=== PATIENT | female | born 1995 | race Hispanic/Latino ===

== ENCOUNTER 2021-04-30 10:06 | Emergency (ER) | payer BC, OTHER ==
--- OUTSIDE RECORDS SUMMARY | 2021-04-30 10:10 | XMS REPORT | Continuity of Care Document ---
:1995 Author Organization [facility] t Address [address] [place] [address] Care Team Providers Name Role Phone Conor Ruby MD Primary Care Physician Jeremy Jacobs Attending Clinician Unavailable ARPITA Attending Clinician Unavailable MACIEL Attending Clinician Unavailable JITENDRA JACKSON Attending Clinician Unavailable CONOR RUBY Attending Clinician Unavailable JESSIE Attending Clinician Unavailable COVID-MODERNA BOOSTER Attending Clinician Unavailable Jeremy Jacobs Admitting Clinician Unavailable Payers Payer Name Policy Type Policy Number Effective Date Expiration Date S [place] [facility] 2 [id number] 2020 00:00:00 Problems Condition Condition Condition Status Onset Resolution Last Treating Co mments Source Name Details Category Date Date Treatment Clinician Date Pharyngiti Pharyngiti Disease Active Mac luna 08-21 Seybold 00:00: 00 Molluscum Molluscum Problem Active [facility] kes - [facility] Encounter Encounter Diagnosis Active [facility] surveillan surveillan Me moria ce of ce of l contracept contracept Ou tpati shasha pills shasha pills ent Clinics Well woman Well woman Diagnosis Active [facility] exam with exam with Shay luna - routine routine Memoria gynecologi gynecologi l kaveh exam kaveh exam Outpat i ent Clinics Allergies, Adverse Reactions, Alerts Allergy Allergy Status Severity Reaction(s) Onset Inactive Treating Comm ents Source Name Type Date Date Clinician No Known DA Active U 2019-0 [facility] No Known DA Active U 2019-0 [facility]- [facility] 00 [facility] Social History Social Habit Start Date Stop Date Quantity Comments Source Tobacco use and 2020-08-21 2020-08-21 Smokeless tobacco Ke lsey Seybold exposure 00:00:00 00:00:00 non-user Sex Ass[birth year] Lynn Se ybold 00:00:00 00:00:00 Smoking Status Start Date Stop Date Source Never smoked tobacco Lynn Seyb old Medications Ordered Filled Start Stop Current Ordering Indication Dosage Frequency Signature Comments Components Source Medication Medication Date Date Medication? Clinician (SIG) Name Name methylPREDN 2020-02 Yes [id number] 1{steff} Take 1 steff Lynn ISolone 4 2-29 by mouth Seybol d MG oral 00:00: See Admin Tablet 00 Instructio Therapy ns Use as Pack directed Azithromyci 2020-02- Yes [id number] Take 2 Lynn n 250 MG 2-29 01-04 tablets by Seyb old oral Tablet 00:00: 05:59 mouth on 00 :00 day 1 then 1 tablet by mouth daily for 4 days thereafter . Methocarbam 2020-02 Yes [id number] 750mg Take 1 Lynn ol 750 MG 2-08 tablet Seybold oral Tablet 00:00: (750 mg 00 total) by mouth 4 times daily Amoxicillin 2020-02 Yes [id number] 1{tbl} Take 1 Lynn -Pot 1-29 tablet by Seybold Clavulanate 00:00: mouth 2 875-125 MG 00 times oral Tablet daily Amoxicillin 2020-02 Yes [id number] 1{tbl} Take 1 Lynn -Pot 1-29 tablet by Seybold Clavulanate 00:00: mouth 2 875-125 MG 00 times oral Tablet daily Promethazin 2020-02 Yes [id number] 25mg Q6H Take 1 Lynn e HCl 25 MG 1-16 tablet (25 Se ybold oral Tablet 00:00: mg total) 00 by mouth every 6 hours as needed for nausea Ondansetron 2020-02 Yes [id number] 4mg Q8H Take 1 Lynn (ZOFRAN) 4 1-16 tablet (4 Seyb old MG oral 00:00: mg total) TABLET 00 by mouth DISPERSIBLE every 8 hours as needed for nausea Sertraline 2020-02 Yes 25mg Take 25 mg K elsey HCl 25 MG 1-16 by mouth Seybol d oral Tablet 00:00: daily 00 Promethazin 2020-02 Yes [id number] 25mg Q6H Take 1 Lynn e HCl 25 MG 1-16 tablet (25 Se ybold oral Tablet 00:00: mg total) 00 by mouth every 6 hours as needed for nausea Ondansetron 2020-02 Yes [id number] 4mg Q8H Take 1 Lynn (ZOFRAN) 4 1-16 tablet (4 Seyb old MG oral 00:00: mg total) TABLET 00 by mouth DISPERSIBLE every 8 hours as needed for nausea Sertraline 2020-02 Yes 25mg Take 25 mg K elsey HCl 25 MG 1-16 by mouth Seybol d oral Tablet 00:00: daily 00 Nitrofurant 2020-0 Yes [id number] 100mg Take 1 Lynn oin Monohyd 8-16 capsule Seybo ld Macro 100 00:00: (100 mg MG oral 00 total) by Capsule mouth 2 times daily FLUTICASONE 0 Yes [id number] 50ug Use 1 K elsey PROPIONATE, 8-16 spray (50 Sey bold NASAL, 00:00: mcg total) (Flonase) 00 in each 50 MCG/ACT nostril nasal daily Suspension Nitrofurant 0 Yes [id number] 100mg Take 1 Lynn oin Monohyd 8-16 capsule Seybo ld Macro 100 00:00: (100 mg MG oral 00 total) by Capsule mouth 2 times daily FLUTICASONE 0 Yes [id number] 50ug Use 1 K elsey PROPIONATE, 8-16 spray (50 Sey bold NASAL, 00:00: mcg total) (Flonase) 00 in each 50 MCG/ACT nostril nasal daily Suspension Norethindro Yes 1{tbl} Take 1 Ke lsey ne, 7-04 tablet by Seybold Contracepti 00:00: mouth ve, 0.35 MG 00 daily oral Tablet Norethindro Yes 1{tbl} Take 1 Ke brandtey ne, 7-04 tablet by Chata Martinez 00:00: mouth ve, 0.35 MG 00 daily oral Tablet Loestrin 24 Loestrin 2017- Yes Chavo [address] [facility] 05-10 Jonel Bull - 00:00: [facility] Immunizations Ordered Immunization Filled Immunization Date Status Commen ts Source Name Name Influenza Virus 2020-11-24 Completed Lynn kc Vaccine, age 6 months 00:00:00 and up Influenza Virus 2020-11-24 Completed Lynn kc Vaccine, age 6 months 00:00:00 and up Covid-19 Vaccine 2020-10-15 Completed Lynn riverabold (Moderna), Mrna-lnp, 00:00:00 Johnathan Protein, Pf, 100 Mcg/0.5ml,IM Covid-19 Vaccine 2020-10-15 Completed Lynn riverabold (Moderna), Mrna-lnp, 00:00:00 Johnathan Protein, Pf, 100 Mcg/0.5ml,IM MMR- Measles, Mumps, 2020-08-24 Completed Sridevi Brizuela Rubella 00:00:00 MMR- Measles, Mumps, 2020-08-24 Completed Sridevi miguel Wagnerybold Rubella 00:00:00 Outside Tb Screening 2020-05-06 Completed Sridevi miguel Seybold 00:00:00 Outside Tb Screening 2020-05-06 Completed Sridevi miguel Seybold 00:00:00 Covid-19 Vaccine 2020-03-10 Completed Lynn riverabold (Moderna), Mrna-lnp, 00:00:00 Johnathan Protein, Pf, 100 Mcg/0.5ml,IM Covid-19 Vaccine 2020-03-10 Completed Lynn Luna eybold (Moderna), Mrna-lnp, 00:00:00 Johnathan Protein, Pf, 100 Mcg/0.5ml,IM Covid-19 Vaccine 2020-02-11 Completed Lynn Luna eybold (Moderna), Mrna-lnp, 00:00:00 Johnathan Protein, Pf, 100 Mcg/0.5ml,IM Covid-19 Vaccine 2020-02-11 Completed Lynn Luna eybold (Moderna), Mrna-lnp, 00:00:00 Johnathan Protein, Pf, 100 Mcg/0.5ml,IM Tdap- (Boostrix, 2019-02-27 Completed Lynn S eybold Adacel) 00:00:00 Tdap- (Boostrix, 2019-02-27 Completed Lynn S eybold Adacel) 00:00:00 Tdap- (Boostrix, 2019-02-27 Completed Lynn S eybold Adacel) 00:00:00 Tdap- (Boostrix, 2019-02-27 Completed Lynn S eybold Adacel) 00:00:00 Influenza Virus 2018-10-25 Completed Lynn Se ybold Vaccine, age 6 months 00:00:00 and up Influenza Virus 2018-10-25 Completed Lynn Se ybold Vaccine, age 6 months 00:00:00 and up Tdap- (Boostrix, 2017-10-09 Completed Lynn S eybold Adacel) 00:00:00 Tdap- (Boostrix, 2017-10-09 Completed Lynn S eybold Adacel) 00:00:00 Tdap- (Boostrix, 2009-02-13 Completed Lynn S eybold Adacel) 00:00:00 Tdap- (Boostrix, 2009-02-13 Completed Lynn S eybold Adacel) 00:00:00 Hepatitis A 2009-02-02 Completed Lynn Wagnerybol d 00:00:00 HPV (Human 2009-02-02 Completed Lynn Seybkeshav Papillomavirus) 00:00:00 Hepatitis A 2009-02-02 Completed Lynn Seybol d 00:00:00 HPV (Human 2009-02-02 Completed Lynn Seybkeshav Papillomavirus) 00:00:00 HPV (Human 2008-09-30 Completed Lynn Seybkeshav Papillomavirus) 00:00:00 HPV (Human 2008-09-30 Completed Lynn Seybkeshav Papillomavirus) 00:00:00 Hepatitis A 2008-07-31 Completed Lynn Seybol d 00:00:00 HPV (Human 2008-07-31 Completed Lynn Seybold Papillomavirus) 00:00:00 Meningococcal 2008-07-31 Completed Lynn Wagneryb old Vaccine- 00:00:00 Conjugate(Menactra) Varicella Vaccine 2008-07-31 Completed Lynn Brizuela 00:00:00 Tdap- (Boostrix, 2008-07-31 Completed Lynn S eybold Adacel) 00:00:00 Hepatitis A 2008-07-31 Completed Lynn Wagnerybol d 00:00:00 HPV (Human 2008-07-31 Completed Lynn Wagnerybold Papillomavirus) 00:00:00 Meningococcal 2008-07-31 Completed Lynn Wagneryb old Vaccine- 00:00:00 Conjugate(Menactra) Varicella Vaccine 2008-07-31 Completed Lynn Wagnerybold 00:00:00 Tdap- (Boostrix, 2008-07-31 Completed Lynn S eybold Adacel) 00:00:00 MMR- Measles, Mumps, 1999-09-09 Completed Sridevi ey Seybold Rubella 00:00:00 Varicella Vaccine 1999-09-09 Completed Lynn Seybold 00:00:00 IPV- Inactivated 1999-09-09 Completed Lynn S eybold Polio Vaccine 00:00:00 MMR- Measles, Mumps, 1999-09-09 Completed Sridevi ey Seybold Rubella 00:00:00 Varicella Vaccine 1999-09-09 Completed Lynn Seybold 00:00:00 IPV- Inactivated 1999-09-09 Completed Lynn S eybold Polio Vaccine 00:00:00 MMR- Measles, Mumps, 1996-02-23 Completed Sridevi ey Seybold Rubella 00:00:00 MMR- Measles, Mumps, 1996-02-23 Completed Sridevi ey Seybold Rubella 00:00:00 OPV- Oral Polio 1995 Completed Lynn Se ybold Vaccine 00:00:00 Hepatitis B, 1995 Completed Lynn Wagnerybo ld Unspecified 00:00:00 OPV- Oral Polio 1995 Completed Lynn Se ybold Vaccine 00:00:00 Hepatitis B, 1995 Completed Lynn Seybo ld Unspecified 00:00:00 OPV- Oral Polio 1995 Completed Lynn Se ybold Vaccine 00:00:00 OPV- Oral Polio 1995 Completed Lynn Se ybold Vaccine 00:00:00 OPV- Oral Polio 1995 Completed Lynn Se ybold Vaccine 00:00:00 OPV- Oral Polio 1995 Completed Lynn Se ybold Vaccine 00:00:00 Hepatitis B, 1995 Completed Lynn Kongo ld Unspecified 00:00:00 Hepatitis B, 1995 Completed Lynngenie Kongo ld Unspecified 00:00:00 Hepatitis B, 1995 Completed Lynn Wagnerybo ld Unspecified 00:00:00 Hepatitis B, 1995 Completed Lynn Wagnerybo ld Unspecified 00:00:00 Vital Signs Vital Name Observation Time Observation Value Comments Source Systolic blood pressure 2021-01-11 17:31:00 112 mm[Hg] Lynn Seybold Diastolic blood 2021-01-11 17:31:00 68 mm[Hg] Kelse y Seybold pressure Heart rate 2021-01-11 17:31:00 73 /min Lynn Jeremy riverabonano Body temperature 2021-01-11 17:31:00 37.17 Candie Sridevi ey Seybold Respiratory rate 2021-01-11 17:31:00 14 /min Sridevi rivera Seybold Body height 2021-01-11 17:31:00 160 cm Lynn riverabonano Body weight 2021-01-11 17:31:00 67.132 kg Lynngenie riverabonano BMI 2021-01-11 17:31:00 26.22 kg/m2 Lynn Jeremy howie Procedures Procedure Date / Time Performed Performing Clinician [facility] e [id number] 2019-05-21 00:00:00 [facility] Encounters Start End Encounter Admission Attending Care Care Encounter Source Date/Time Date/Time Type Type Clinicians Facility Department ID 2019-05-21 Inpatient Reynaldo [facility] RITU [id number] [facility] 02:34:[id number] [facility] 2021-04-30 2021-04-30 Outpatient LYNN PALM [id number] Lynn 09:30:00 09:30:00 THOMAS Seybol d 2021-04-21 2021-04-[address] [id number] Lynn 00:00:00 00:00:00 RUDDY Seybol d 2021-03-23 2021-03-23 Outpatient CORIE JACKSON [id number] Lynn 08:15:00 08:15:00 Seybol d 2021-03-22 2021-03-[address] LYNN [id number] Lynn 00:00:00 00:00:00 RUDDY Seybol d 2021-03-15 2021-03-15 Outpatient MACIEL LYNN ESTEVES [id number] Lynn 00:00:00 00:00:00 RUDDY Seybol d 2021-03-15 2021-03-15 Outpatient MACIEL LYNN ESTEVES [id number] Lynn 00:00:00 00:00:00 RUDDY Seybol d 2021-03-05 2021-03-05 Outpatient MACIEL LYNN ESTEVES [id number] Lynn 13:30:00 13:30:00 RUDDY Seybol d 2021-03-05 2021-03-05 Outpatient LYNN RUBY [id number] Lynn 13:30:00 13:30:00 NADER Seybol d 2021-02-11 2021-02-11 Outpatient MACIEL LYNN ESTEVES [id number] Lynn 00:00:00 00:00:00 RUDDY Seybol d 2021-02-10 2021-02-10 [facility] Corie TS [id number] Lynn 11:30:00 11:30:00 ne RUDDY Walker [id number] Se ybold [id number] 2021-02-10 2021-02-10 Outpatient MACOh LYNN ESTEVES [id number] Lynn 00:00:00 00:00:00 RUDDY Seybol d 2021-01-20 2021-01-20 Outpatient MACIEL LYNN ESTEVES [id number] Lynn 00:00:00 00:00:00 RUDDY Seybol d 2021-01-11 2021-01-11 Office MACCorie Casiano [id number] Lynn 16:00:00 16:00:00 Visit RUDDY Walker [id number] Se ybold [id number] 2020-12-29 2020-12-29 Outpatient LYNN RUBY [id number] Lynn 00:00:00 00:00:00 NADER Seybol d 2020-11-24 2020-11-24 Outpatient CORIE JACKSON LYNN ESTEVES [id number] Lynn 10:00:00 10:00:00 Seybol d 2020-11-23 2020-11-23 Outpatient CORIE JACKSON LYNN ESTEVES [id number] Lynn 09:00:00 09:00:00 Seybol d 2020-11-23 2020-11-23 Outpatient LYNN ROMAN [id number] Lynn 00:00:00 00:00:00 NILSA Seybol d 2020-10-15 2020-10-15 Outpatient COVIDKAZ ESTEVES [id number] Lynn 10:40:00 10:40:00 NA Se yamini SMITH 2020-09-28 2020-09-28 Outpatient LYNN RUBY [id number] Lynn 11:00:00 11:00:00 NADER Seybol d 2020-08-24 2020-08-24 Outpatient CORIE JACKSON LYNN ESTEVES [id number] Lynn 11:15:00 11:15:00 Seybol d 2020-08-24 2020-08-24 Outpatient LYNN ROMAN [id number] Lynn 00:00:00 00:00:00 NILSA Seybol d 2020-08-21 2020-08-21 Outpatient LYNN RUBY [id number] Lynn 16:30:00 16:30:00 NADER Seybol d 2017-05-10 2017-05-10 [facility] [id number] [address] 13:30[facility]00 13:30:00 [facility] 2017-05-10 2017-05-10 [facility] [id number] 08:48:00 08:48:00 [facility] Results Test Description Test Time Test Comments Results Result Comments Source HGB HCT 2019-05-22 06:22:00 Test Item Value Reference Range Interpretation Comme nts HEMOGLOBIN (test code = HGB) 10.4 g/dL 10.7-13.9 L HEMATOCRIT (test code = HCT) 32.1 % 32.1-42.1 N CAPILLARY BLOOD [id number] 21:02:00 Test Item Value Reference Range Interpretation Comments CAPILLARY BLOOD GAS PH (test code 7.273 7.35-7.45 L = PHC) CAPILLARY BLOOD GAS PCO2 (test 55.4 mmHg code = PCO2C) CAPILLARY BLOOD GAS PO2 (test code 12.3 mmHg = PO2C) CBG HCO3 (test code = HCO3C) 25.0 meq/L CBG BASE EXCESS (test code = BEC) -2.7 CAPILLARY BLOOD GAS TYPE (test CBLA code = TYPEC) CAPILLARY BLOOD GAS FIO2 (test 21.0 % code = FIO2C) AG HEPATITIS B [id number] 06:28:00 Test Item Value Reference Range Interpretation Comments AG HEPATITIS B SURFACE (test code NONREACTIVE NONREACTIVE = HBSAG) IS CONSENT FORM SIGNED FOR HIV TESTING? NAB HEPATITIS C [id number] 06:28:00 Test Item Value Reference Range Interpretation Comments AB HEPATITIS C (test code = NONREACTIVE NONREACTIVE HCVAB) SIGNAL TO CUTOFF (test code = 0.25 <0.80 N CUTOFF) IS CONSENT FORM SIGNED FOR HIV TESTING? NAB [id number] 06:28:00 Test Item Value Reference Range Interpretation Comments AB TREPONEMA (test code = TREPAB) NONREACTIVE NONREACTIVE IS CONSENT FORM SIGNED FOR HIV TESTING? NAB HIV 1 06:28:00 Test Item Value Reference Range Interpretation Comments AB HIV 1 2 (test NONREACTIVE NONREACTIVE Done by [facility] code = UII81BB) 4th Gen HIV Ag/Ab Combo Screen IS CONSENT FORM SIGNED FOR HIV TESTING? NAG HEPATITIS B [id number] 05:56:00 Test Item Value Reference Range Interpretation Comments AG HEPATITIS B SURFACE (test code NONREACTIVE NONREACTIVE = HBSAG) IS CONSENT FORM SIGNED FOR HIV TESTING? NAB HEPATITIS C [id number] 05:56:00 Test Item Value Reference Range Interpretation Comments AB HEPATITIS C (test code = HCVAB) NONREACTIVE SIGNAL TO CUTOFF (test code = CUTOFF) <0.80 IS CONSENT FORM SIGNED FOR HIV TESTING? NAB [id number] 05:56:00 Test Item Value Reference Range Interpretation Comments AB TREPONEMA (test code = TREPAB) NONREACTIVE NONREACTIVE IS CONSENT FORM SIGNED FOR HIV TESTING? NAB HIV 1 05:56:00 Test Item Value Reference Range Interpretation Comments AB HIV 1 2 (test code = NJA96IT) NONREACTIVE IS CONSENT FORM SIGNED FOR HIV TESTING? NCBC W/AUTO [id number] 05:12:00 Test Item Value Reference Range Interpretation Comments WHITE BLOOD CELL (test code = WBC) 11.9 K/mm3 6.6-12.1 N RED BLOOD CELL (test code = RBC) 4.06 M/mm3 3.45-5.01 N HEMOGLOBIN (test code = HGB) 11.5 g/dL 10.7-13.9 N HEMATOCRIT (test code = HCT) 34.9 % 32.1-42.1 N MEAN CELL VOLUME (test code = MCV) 86 fL 84.1-94.8 N MEAN CELL HGB (test code = MCH) 28.3 pg 27-35 N MEAN CELL HGB CONCETRATION (test 33.0 gm/dL 32.2-34.1 N code = MCHC) RED CELL DISTRIBUTION WIDTH (test 12.2 % 12.4-16.5 L code = RDW) PLATELET COUNT (test code = PLT) 239 K/mm3 133-385 N MEAN PLATELET VOLUME (test code = 12.3 fl 9.1-12.7 N MPV) NEUTROPHIL % (test code = NT%) 78.4 % 56.5-79.4 N LYMPHOCYTE % (test code = LY%) 11.7 % 14.3-34.3 L MONOCYTE % (test code = MO%) 8.0 % 5.1-10.4 N EOSINOPHIL % (test code = EO%) 0.8 % 0.1-3.0 N BASOPHIL % (test code = BA%) 0.3 % 0.1-1.0 N NEUTROPHIL # (test code = NT#) 9.3 K/mm3 LYMPHOCYTE # (test code = LY#) 1.4 K/mm3 MONOCYTE # (test code = MO#) 1.0 K/mm3 EOSINOPHIL # (test code = EO#) 0.10 K/mm3 BASOPHIL # (test code = BA#) 0.0 K/mm3 RBC MORPHOLOGY REQUIRED (test code NORMAL NORMAL = RBCM) PLATELET MORPHOLOGY REQUIRED (test NORMAL NORMAL code = PLTMR)
--- NOTE | 2021-04-30 12:21 | RAD REPORT ---
EXAM DESCRIPTION: RAD - Tib Fib Left - 04/30/2021 11:19 am CLINICAL HISTORY: Leg pain, twisting injury COMPARISON: None. FINDINGS: No fracture is identified. There is no dislocation or periosteal reaction noted. No acute or suspicious bony finding. Lateral soft tissue swelling is seen at the distal tib fib and ankle region. No foreign body in the s oft tissues. IMPRESSION: Lateral lower leg soft tissue swelling without acute bone finding.
--- NOTE | 2021-04-30 12:23 | RAD REPORT ---
EXAM DESCRIPTION: RAD - Foot Left 3 View - 04/30/2021 11:19 am CLINICAL HISTORY: PAIN, fall with twisting injury COMPARISON: Tib Fib Left dated 04/30/2021 FINDINGS: No fracture, dislocation or periosteal reaction. No acute or destructive bony process. No air or foreign body in the soft tissues. At the ankle joint there is swelling and edema of the ant erior and lateral soft tissues. IMPRESSION: Soft tissue swelling around the distal leg and lateral ankle. No fracture or acute bone finding.
--- NOTE | 2021-04-30 12:47 | EDPHYS ---
Physician Documentation [facility] Name: Temitope Artis Age: 26 yrs Sex: Female : 1995 Arrival Date: 04/30/2021 Time: 10:10 Bed 11 Private MD: ED Physician Adi Garcia HPI: 04/30 11:20 This 26 yrs old Female presents to ER via Wheelchair with complaints of Ankle jr8 Injury. 11:20 The patient presents with decreased range of motion, pain, swelling, tenderness. The jr8 complaints affect the left ankle. Onset: The symptoms/episode began/occurred acutely, yesterday. Context: The problem was sustained outdoors, resulted from a mis-step by the patient, The mechanism of injury involved inversion of the affected ankle. The patient can partially bear weight on the affected extremity. Associated signs and symptoms: The patient has no apparent associated signs or symptoms. Severity of symptoms: At their worst the symptoms were moderate, in the emergency department the symptoms are unchanged. The patient has not experienced similar symptoms in the past. The patient has not recently seen a physician. And stated that she was at the [facility] causing an inversion of the left ankle. Patient stated that since then she has had moderate swelling with increasing pain.. Historical: - Allergies: 10:25 No Known Allergies; ll1 - PMHx: 10:25 None; ll1 - PSHx: 10:25 back SX; section; Cholecystectomy; ll1 - Immunization history:: Client reports receiving the 2nd dose of the Covid vaccine. - Social history:: Smoking status: Patient denies any tobacco usage or history of. ROS: 11:20 Eyes: Negative for injury, pain, redness, and discharge, ENT: Negative for injury, jr8 pain, and discharge, Neck: Negative for injury, pain, and swelling, Cardiovascular: Negative for chest pain, palpitations, and edema, Respiratory: Negative for shortness of breath, cough, wheezing, and pleuritic chest pain, Abdomen/GI: Negative for abdominal pain, nausea, vomiting, diarrhea, and constipation, Back: Negative for injury and pain, Skin: Negative for injury, rash, and discoloration, Neuro: Negative for headache, weakness, numbness, tingling, and seizure. 11:20 MS/extremity: Positive for decreased range of motion, pain, swelling, tenderness, of the left ankle. Exam: 11:20 Constitutional: This is a well developed, well nourished patient who is awake, alert, jr8 and in no acute distress. Cardiovascular: Regular rate and rhythm with a normal S1 and S2. No gallops, murmurs, or rubs. Normal PMI, no JVD. No pulse deficits. Respiratory: Lungs have equal breath sounds bilaterally, clear to auscultation and percussion. No rales, rhonchi or wheezes noted. No increased work of breathing, no retractions or nasal flaring. Skin: Warm, dry with normal turgor. Normal color with no rashes, no lesions, and no evidence of cellulitis. Neuro: Awake and alert, GCS 15, oriented to person, place, time, and situation. Motor strength 5/5 in all extremities. Sensory grossly intact. 11:20 Musculoskeletal/extremity: Extremities: grossly normal except: noted in the left ankle: decreased ROM, pain, swelling, tenderness, Or swelling to the left lateral ankle extending to the dorsum of the ankle. Patient has moderate amount of tenderness to the lateral malleolus and anterior ankle., ROM: limited active range of motion, limited passive range of motion, limited active range of motion due to pain, limited passive range of motion due to pain, Circulation is intact in all extremities. Sensation intact. Vital Signs: 10:26 BP 116 / 83; Pulse 84; Resp 16; Temp 98.1; Pulse Ox 99% ; Weight 67.13 kg; Height 5 ft. ll1 2 in. (157.48 cm); Pain 5/10; 10:26 Body Mass Index 27.07 (67.13 kg, 157.48 cm) ll1 Procedures: 12:46 Splinting: Splint applied to left ankle using christoph wrap, applied by nurse. Examined by jr8 ia, post splint application: neurovascular intact, 2+ distal pulses palpable, brisk capillary refill noted, Patient tolerated well. Crutch training provided to patient and/or family. Return demonstration given. MDM: 10:28 Patient medically screened. jr8 12:46 Data reviewed: vital signs, nurses notes, radiologic studies, plain films. Data jr8 interpreted: Pulse oximetry: on room air is 99 %. Interpretation: normal. Counseling: I had a detailed discussion with the patient and/or guardian regarding: the historical points, exam findings, and any diagnostic results supporting the discharge/admit diagnosis, radiology results, the need for outpatient follow up, a orthopedic surgeon, to return to the emergency department if symptoms worsen or persist or if there are any questions or concerns that arise at home. 04/30 10:25 Order name: Foot Left 3 View XRAY; Complete Time: 12:39 ma2 04/30 10:25 Order name: Tib Fib Left XRAY; Complete Time: 12:39 ma2 04/30 12:39 Order name: Christoph wrap-joint; Complete Time: 12:55 jr8 04/30 12:39 Order name: Crutches; Complete Time: 12:55 jr8 Administered Medications: No medications were administered Disposition Summary: 04/30/21 12:47 Discharge Ordered Location: Home jr8 Problem: new jr8 Symptoms: have improved jr8 Condition: Stable jr8 Diagnosis - Sprain of ankle jr8 Followup: jr8 - With: Anthony Quintero MD - When: 1 week - Reason: Recheck today's complaints, Continuance of care, Re-evaluation by your physician Discharge Instructions: - Discharge Summary Sheet jr8 - Ankle Sprain jr8 Forms: - Medication Reconciliation Form jr8 - Thank You Letter jr8 - Antibiotic Education jr8 - Prescription Opioid Use jr8 Prescriptions: - Ibuprofen 800 mg Oral Tablet - take 1 tablet by ORAL route every 12 hours As needed take with food; 20 tablet; jr8 Refills: 0, Product Selection Permitted Signatures: Dispatcher [employer] Bret Reyes PA PA jr8 Tsering Ray RN RN ll1
--- NOTE | 2021-04-30 12:47 | ER ---
Nurse's Notes [facility] Name: Temitope Artis Age: 26 yrs Sex: Female : 1995 Arrival Date: 04/30/2021 Time: 10:10 Bed 11 Private MD: Diagnosis: Sprain of ankle Presentation: 04/30 10:26 Chief complaint: Patient states: Rolled L ankle last night at 2300 leaving the [place]. ll1 Pain, swelling since. Coronavirus screen: Vaccine status: Patient reports receiving the 2nd dose of the covid vaccine. Client denies travel out of the [place] in the last 14 days. At this time, the client does not indicate any symptoms associated with coronavirus-19. Ebola Screen: Patient denies travel to an Ebola-affected area in the 21 days before illness onset. Initial Sepsis Screen: Does the patient meet any 2 criteria? No. Patient's initial sepsis screen is negative. Does the patient have a suspected source of infection? Yes: Bone or joint infection. Risk Assessment: Do you want to hurt yourself or someone else? Patient reports no desire to harm self or others. Onset of symptoms was April 29, 2021. 10:26 Method Of Arrival: Wheelchair ll1 10:26 Acuity: OSMEL 4 ll1 Triage Assessment: 10:27 General: Appears uncomfortable, Behavior is calm, cooperative, appropriate for age. ll1 Pain: Complains of pain in L ankle Quality of pain is described as aching. Musculoskeletal: Reports pain in L ankle. Historical: - Allergies: 10:25 No Known Allergies; ll1 - PMHx: 10:25 None; ll1 - PSHx: 10:25 back SX; section; Cholecystectomy; ll1 - Immunization history:: Client reports receiving the 2nd dose of the Covid vaccine. - Social history:: Smoking status: Patient denies any tobacco usage or history of. Screenin:10 Abuse screen: Denies threats or abuse. Nutritional screening: No deficits noted. aa5 Tuberculosis screening: No symptoms or risk factors identified. Fall Risk None identified. Assessment: 13:00 General: Appears comfortable, Behavior is calm, cooperative. Pain: Complains of pain in aa5 left ankle. Neuro: Level of Consciousness is awake, alert, obeys commands, Oriented to person, place, time, situation. Respiratory: Airway is patent Respiratory effort is even, unlabored, Respiratory pattern is regular, symmetrical. Derm: Skin is pink, warm \T\ dry. Musculoskeletal: Swelling present in left ankle. 13:10 Reassessment: Patient is alert, oriented x 3, equal unlabored respirations, skin aa5 warm/dry/pink. Vital Signs: 10:26 BP 116 / 83; Pulse 84; Resp 16; Temp 98.1; Pulse Ox 99% ; Weight 67.13 kg; Height 5 ft. ll1 2 in. (157.48 cm); Pain 5/10; 10:26 Body Mass Index 27.07 (67.13 kg, 157.48 cm) ll1 ED Course: 10:10 Patient arrived in ED. as 10:24 Adi Garcia MD is Attending Physician. ma2 10:25 Arm band placed on. ll1 10:27 Triage completed. ll1 10:28 Bret Carr PA is PHCP. jr8 11:19 Foot Left 3 View XRAY In Process Unspecified. EDMS 11:19 Tib Fib Left XRAY In Process Unspecified. EDMS 12:46 Anthony Quintero MD is Referral Physician. jr8 12:54 Crutch training done. Christoph wrap to left ankle. dh3 13:00 Patient has correct armband on for positive identification. aa5 13:10 No provider procedures requiring assistance completed. Patient did not have IV access aa5 during this emergency room visit. 13:13 Rosio Araiza, RN is Primary Nurse. aa5 Administered Medications: No medications were administered Outcome: 12:47 Discharge ordered by . jr8 13:10 Discharged to home via wheelchair, with crutches, with family. aa5 13:10 Condition: stable 13:10 Discharge instructions given to patient, Instructed on discharge instructions, follow up and referral plans. medication usage, crutch walking, Demonstrated understanding of instructions, follow-up care, medications, crutch walking, Prescriptions given X 1. 13:13 Patient left the ED. aa5 Signatures: Dispatcher [employer] EDMS Paty Power as Rosio Araiza, JAYA RN aa5 Bret Carr PA PA jr8 Gisela Mahajan 3 Adi Garcia MD MD ma2 Tsering Ray RN RN ll1 Corrections: (The following items were deleted from the chart) 13:15 13:10 Discharged to home via wheelchair, with crutches, with family, aa5 aa5 13:15 13:10 Discharge instructions given to patient, Instructed on discharge instructions, aa5 follow up and referral plans. medication usage, Demonstrated understanding of instructions, follow-up care, medications, Prescriptions given X 1, aa5
[2021-04-30 13:17] VITALS: BP 116/83; TEMP 98.1; O2SAT 99
== END 2021-04-30 13:13 | disposition home or self-care (01) ==
LOC: ER 10:06
DX: S93.402A Sprain of unspecified ligament of left ankle, initial encounter (principal)
CPT/HCPCS: 99283

== ENCOUNTER 2024-06-11 21:51 | Emergency (ER) | payer BC, OTHER ==
--- OUTSIDE RECORDS SUMMARY | 2024-06-11 21:55 | XMS REPORT | Continuity of Care Document ---
Author Name Unknown Address [address] [facility] [address] [place] [address] [facility] Address [address] [facility] [place] [address] Care Team Providers Care Refractory Technician Name Role Phone [employer]ung [employer], Nader Burden Primary Care Physician Adonis Jacobs Attending Clinician Unavailab le [facility]_G Attending Clinician Unavail able GC_SWHATBHENRY_Reynaldo Attending Clinician Unavaila FRANCK Frost Attending Clinician Unavailab INDRA Camp Attending Clinician Unavailable AMANDA DINH Attending Clinician Unavailable RUDDY ST Attending Clinician Unavailable RENETTA [place] Attending Clinician UnavailNILSA Yeboah Attending Clinician Unavailable [id number] Attending Clinician Unavailable TESTING, LJ FRANCA VILLANUEVA Attending Clinician U Sree Awad DO Attending Clinician [phone] NADER RUBY Attending Clinician UnaSTEFFI Parker Attending Clinic winter Unavailable Adonis Jacobs Admitting Clinician Unavailab le [facility]_G Admitting Clinician Unavail able GC_SWHATBIC_Reynaldo Admitting Clinician Unavaila ble Payers Payer Name Policy Type Policy Number Effective Date Expirati on Date Source [place] [id number] 2020 00:00:00 BCBS 2 [id number] 2020 00:00:00 Problems Condition Name Condition Details Condition Category Status Onset Date Resolution Date Last Treatment Date Treating Clinician Comments Source Vaginal delivery Vaginal Delivery Problem Active 2- 00:00: 00 [facility] Anxiety Anxiety Problem Active 4-20 00:00: 00 [facility] Acute left ankle pain Acute left ankle pain Disease Active 3-18 00:00: 00 Lynn Brizuela - Externa l Pharyngiti s Pharyngiti s Disease Active 08-21 00:00: 00 Lynn Brizuela - Externa l Well woman exam with routine gynecologi kaveh exam Well woman exam with routine gynecologi kaveh exam Diagnosis Active [facility] Molluscum contagiosu m Molluscum contagiosu m Problem Active [facility] Encounter for surveillan ce of contracept shasha pills Encounter for surveillan ce of contracept shasha pills Diagnosis Active [facility] Allergies, Adverse Reactions, Alerts Allergy Name Allergy Type Status Severity Reaction(s) Onset Date Inactive Date Treating Clinician Comments Source No Known Allergie s DA Active U 05-20 00:00: 00 [facility] No Known Allergie s DA Active U 05-20 00:00: 00 [facility] Social History Social Habit Start Date Stop Date Quantity Comments Source ASSERTION Lynn figueroa - External Sexual orientation K edu Brizuela - External History of Social function 2022-02-08 00:00:00 2022-02-08 00:00:00 Lynn Brizuela - External Tobacco use and exposure 2020-08-21 00:00:00 2020-08-21 00:00:00 Smokeless tobacco non-user Lynn Brizuela - External Sex Assigned At 1995 00:00:00 1995 00:00:00 Lynn Brizuela - External Smoking Status Start Date Stop Date Source Never smoked tobacco Lynn Brizuela - External Medications Ordered Medication Name Filled Medication Name Start Date Stop Date Current Medication? Ordering Clinician Indication Dosage Frequency Signature (SIG) Comments Components Source FLUTICASONE PROPIONATE, NASAL, 50 MCG/ACT nasal Suspension 7-07 00:00: 00 Yes [id number] 50ug Use 1 spray (50 mcg total) in each nostril daily Lynn hua methylPREDN ISolone 4 MG oral Tablet Therapy Pack 2021-02 00:00: 00 Yes [id number] 1{steff} Take 1 steff by mouth See Admin Instructio ns Use as directed Lynn hua methylPREDN ISolone 4 MG oral Tablet Therapy Pack 2021-02 00:00: 00 Yes [id number] 1{steff} Take 1 steff by mouth See Admin Instructio ns Use as directed Lynn hua Azithromyci n 250 MG oral Tablet 2021-02 00:00: 00 02-14 05:59 :00 No [id number] Take 2 tablets by mouth on day 1 then 1 tablet by mouth daily for 4 days thereafter . Lynn hua Nitrofurant oin Monohyd Macro (Macrobid) 100 MG oral Capsule 2021-02 00:00: 00 Yes [id number] 100mg Take 1 capsule (100 mg total) by mouth 2 times daily Lynn hua Phenazopyri dine HCl 200 MG oral Tablet 2021-02 00:00: 00 Yes [id number] 200mg Q.[id number] 3D Take 1 tablet (200 mg total) by mouth 3 times daily as needed for pain Lynn hua FLUTICASONE PROPIONATE, NASAL, 50 MCG/ACT nasal Suspension 5-03 00:00: 00 Yes [id number] 50ug Use 1 spray (50 mcg total) in each nostril daily Lynn hua Cefixime (Suprax) 400 MG oral Capsule 3-09 00:00: 00 04-30 00:00 :00 No [id number] 400mg Take 400 mg by mouth daily Lynn Brizuela Scopolamine (TRANSDERM- SCOP) 1 MG/3DAYS transdermal PATCH 72 HR 2-07 00:00: 00 04-30 00:00 :00 No [id number] 1{patch } Place 1 patch onto the skin every 3 days Lynn Brizuela Ondansetron (Zofran ODT) 4 MG oral TABLET DISPERSIBLE 2- 00:00: 00 04-30 00:00 :00 No [id number] 4mg Q.[id number] 3D Take 1 tablet (4 mg total) by mouth every 8 hours as needed for nausea Lynn Brizuela methylPREDN ISolone 4 MG oral Tablet Therapy Pack 2020-02 00:00: 00 04-30 00:00 :00 No [id number] 1{steff} Take 1 steff by mouth See Admin Instructio ns Use as directed Lynn Brizuela Azithromyci n 250 MG oral Tablet 2020-02 00:00: 00 02-16 05:59 :00 No [id number] Take 2 tablets by mouth on day 1 then 1 tablet by mouth daily for 4 days thereafter . Lynn Brizuela Methocarbam ol 750 MG oral Tablet 2020-02 00:00: 00 04-30 00:00 :00 No [id number] 750mg Take 1 tablet (750 mg total) by mouth 4 times daily Lynn Brizueal Amoxicillin -Pot Clavulanate 875-125 MG oral Tablet 2020-02 00:00: 00 Yes [id number] 1{tbl} Take 1 tablet by mouth 2 times daily Lynn Brizuela Ondansetron (ZOFRAN) 4 MG oral TABLET DISPERSIBLE 2020-02 00:00: 00 Yes [id number] 4mg Q8H Take 1 tablet (4 mg total) by mouth every 8 hours as needed for nausea Lynn Brizuela Promethazin e HCl 25 MG oral Tablet 2020-02 00:00: 00 04-30 00:00 :00 No [id number] 25mg Q.25D Take 1 tablet (25 mg total) by mouth every 6 hours as needed for nausea Lynn Brizuela Nitrofurant oin Monohyd Macro 100 MG oral Capsule 8-16 00:00: 00 Yes [id number] 100mg Take 1 capsule (100 mg total) by mouth 2 times daily Lynn Brizuela Norethindro neGennaroti ve, 0.35 MG oral Tablet 7-04 00:00: 00 04-30 00:00 :00 No 1{tbl} Take 1 tablet by mouth daily Lynn Brizuela Loestrin Loestrin 3- 00:00: 00 Yes Chavo Repiloi 1 tablet [facility] fluticasone propionate 50 mcg/actuati on nasal spray,suspe nsion fluticasone propionate 50 mcg/actuati on nasal spray,suspe nsion No fluticason e propionate 50 mcg/actuat ion nasal spray,susp ension [facility] metoclopram amarjit 10 mg tablet TAKE 1 TABLET BY MOUTH THREE TIMES DAILY BEFORE MEALS metoclopram amarjit 10 mg tablet TAKE 1 TABLET BY MOUTH THREE TIMES DAILY BEFORE MEALS No metoclopra mide 10 mg tablet TAKE 1 TABLET BY MOUTH THREE TIMES DAILY BEFORE MEALS [facility] neomycin-po lymyxin-hyd rocort 3.5 mg/mL-10,00 0 unit/mL-1 % ear solution INSTILL 2 DROPS TO LEFT EAR THREE TIMES DAILY neomycin-po lymyxin-hyd rocort 3.5 mg/mL-10,00 0 unit/mL-1 % ear solution INSTILL 2 DROPS TO LEFT EAR THREE TIMES DAILY No neomycin-p olymyxin-h ydrocort 3.5 mg/mL-10,0 00 unit/mL-1 % ear solution INSTILL 2 DROPS TO LEFT EAR THREE TIMES DAILY [facility] ondansetron HCl 4 mg tablet ondansetron HCl 4 mg tablet No ondansetro n HCl 4 mg tablet [facility] rho(D) immune globulin 1,500 unit (300 mcg) intramuscul ar syringe inject 2 ml by intramuscul ar route rho(D) immune globulin 1,500 unit (300 mcg) intramuscul ar syringe inject 2 ml by intramuscul ar route No rho(D) immune globulin 1,500 unit (300 mcg) intramuscu lar syringe inject 2 ml by intramuscu lar route [facility] Rhophylac 1,500 unit (300 mcg)/2 mL injection syringe INJECT 2 ML IN THE MUSCLE DIRECTED Rhophylac 1,500 unit (300 mcg)/2 mL injection syringe INJECT 2 ML IN THE MUSCLE DIRECTED No Rhophylac 1,500 unit (300 mcg)/2 mL injection syringe INJECT 2 ML IN THE MUSCLE DIRECTED [facility] sertraline 100 mg tablet TAKE 1 TABLET BY MOUTH DAILY sertraline 100 mg tablet TAKE 1 TABLET BY MOUTH DAILY No sertraline 100 mg tablet TAKE 1 TABLET BY MOUTH DAILY [facility] sertraline 25 mg tablet TAKE 1 TABLET BY MOUTH DAILY sertraline 25 mg tablet TAKE 1 TABLET BY MOUTH DAILY No sertraline 25 mg tablet TAKE 1 TABLET BY MOUTH DAILY [facility] sertraline 50 mg tablet TAKE 1 AND 1/2 TABLETS BY MOUTH EVERY DAY DIRECTED sertraline 50 mg tablet TAKE 1 AND 1/2 TABLETS BY MOUTH EVERY DAY DIRECTED No sertraline 50 mg tablet TAKE 1 AND 1/2 TABLETS BY MOUTH EVERY DAY DIRECTED [facility] ibuprofen 600 mg tablet TAKE 1 TABLET BY MOUTH EVERY 6 HOURS NEEDED ibuprofen 600 mg tablet TAKE 1 TABLET BY MOUTH EVERY 6 HOURS NEEDED No ibuprofen 600 mg tablet TAKE 1 TABLET BY MOUTH EVERY [address] [facility] oxycodone-a cetaminophe n 5 mg-325 mg tablet TAKE 1 TABLET BY MOUTH EVERY 6 HOURS NEEDED oxycodone-a cetaminophe n 5 mg-325 mg tablet TAKE 1 TABLET BY MOUTH EVERY 6 HOURS NEEDED No oxycodone- acetaminop hen 5 mg-325 mg tablet TAKE 1 TABLET BY MOUTH EVERY [address] [facility] Immunizations Ordered Immunization Name Filled Immunization Name Date Status Comments Source Influenza Virus Vaccine, age 6 months and up 2021-11-04 00:00:00 Completed Lynn Brizuela - External Influenza Virus Vaccine, age 6 months and up 2020-11-24 00:00:00 Completed Lynn Brizuela Influenza Virus Vaccine, age 6 months and up 2020-11-24 00:00:00 Completed Lynn Brizuela Influenza Virus Vaccine, age 6 months and up 2020-11-24 00:00:00 Completed Lynn Brizuela - External Influenza Virus Vaccine, age 6 months and up 2020-11-24 00:00:00 Completed Lynn Brizuela Covid-19 Vaccine Moderna (Spikevax), Mrna-lnp, Johnathan Protein, Pf 2020-10-15 00:00:00 Completed Lynn Brizuela Covid-19 Vaccine Moderna (Spikevax), Mrna-lnp, Johnathan Protein, Pf 2020-10-15 00:00:00 Completed Lynn Kongold - External Covid-19 Vaccine (Moderna), Mrna-lnp, Johnathan Protein, Pf, 100 Mcg/0.5ml,IM 2020-10-15 00:00:00 Completed Lynn Kongold Covid-19 Vaccine (Moderna), Mrna-lnp, Johnathan Protein, Pf, 100 Mcg/0.5ml,IM 2020-10-15 00:00:00 Completed Lynn Wagnernileold MMR- Measles, Mumps, Rubella 2020-08-24 00:00:00 Completed Lynn Seybold MMR- Measles, Mumps, Rubella 2020-08-24 00:00:00 Completed Lynn Wagnerybold - External MMR- Measles, Mumps, Rubella 2020-08-24 00:00:00 Completed Lynn Kongold MMR- Measles, Mumps, Rubella 2020-08-24 00:00:00 Completed Lynn Brizuela Covid-19 Vaccine (UNSPECIFIED) 2020-05-25 00:00:00 Completed Lynn Wagnerybold - External Outside Tb Screening 2020-05-06 00:00:00 Completed Lynn ybold Outside Tb Screening 2020-05-06 00:00:00 Completed Lynn ybold - External Outside Tb Screening 2020-05-06 00:00:00 Completed Lynn Seybold Outside Tb Screening 2020-05-06 00:00:00 Completed Lynn Kongold Covid-19 Vaccine Moderna (Spikevax), Mrna-lnp, Johnathan Protein, Pf 2020-03-10 00:00:00 Completed Lynn Wagnerybold Covid-19 Vaccine Moderna (Spikevax), Mrna-lnp, Johnathan Protein, Pf 2020-03-10 00:00:00 Completed Lynn Seybold - External Covid-19 Vaccine (Moderna), Mrna-lnp, Johnathan Protein, Pf, 100 Mcg/0.5ml,IM 2020-03-10 00:00:00 Completed Lynn Seybold Covid-19 Vaccine (Moderna), Mrna-lnp, Johnathan Protein, Pf, 100 Mcg/0.5ml,IM 2020-03-10 00:00:00 Completed Lnyn Kongold Covid-19 Vaccine Moderna (Spikevax), Mrna-lnp, Johnathan Protein, Pf 2020-02-11 00:00:00 Completed Lynn Wagnerybold Covid-19 Vaccine Moderna (Spikevax), Mrna-lnp, Johnathan Protein, Pf 2020-02-11 00:00:00 Completed Lynn Senileold - External Covid-19 Vaccine (Moderna), Mrna-lnp, Johnathan Protein, Pf, 100 Mcg/0.5ml,IM 2020-02-11 00:00:00 Completed Lynn Kongold Covid-19 Vaccine (Moderna), Mrna-lnp, Johnathan Protein, Pf, 100 Mcg/0.5ml,IM 2020-02-11 00:00:00 Completed Lynn Kongold Tdap- (Boostrix, Adacel) 2019-02-27 00:00:00 Completed Lynn Kongold Tdap- (Boostrix, Adacel) 2019-02-27 00:00:00 Completed Lynn Seybold Tdap- (Boostrix, Adacel) 2019-02-27 00:00:00 Completed Lynn Seybold - External Tdap- (Boostrix, Adacel) 2019-02-27 00:00:00 Completed Lynn nileold Influenza Virus Vaccine, age 6 months and up 2018-10-25 00:00:00 Completed Lynn nileold Influenza Virus Vaccine, age 6 months and up 2018-10-25 00:00:00 Completed Lynn Wagnerybold - External Influenza Virus Vaccine, age 6 months and up 2018-10-25 00:00:00 Completed Lynn ybold Influenza Virus Vaccine, age 6 months and up 2018-10-25 00:00:00 Completed Lynn nileold Influenza Virus Vaccine, Unspecified Formulation 2018-10-24 00:00:00 Completed Lynn Seybold - External Tdap- (Boostrix, Adacel) 2017-10-09 00:00:00 Completed Lynn Seybold Tdap- (Boostrix, Adacel) 2017-10-09 00:00:00 Completed Lynn Seybold - External Tdap- (Boostrix, Adacel) 2017-10-09 00:00:00 Completed Lynn Seybold Tdap- (Boostrix, Adacel) 2017-10-09 00:00:00 Completed Lynn Seybold Tdap- (Boostrix, Adacel) 2009-02-13 00:00:00 Completed Lynn Wagnerybold Tdap- (Boostrix, Adacel) 2009-02-13 00:00:00 Completed Lynn Wagnerybold Tdap- (Boostrix, Adacel) 2009-02-13 00:00:00 Completed Lynn Seybold - External Tdap- (Boostrix, Adacel) 2009-02-13 00:00:00 Completed Lynn Brizuela Hepatitis A 2009-02-02 00:00:00 Completed Lynn Brizuela HPV (Human Papillomavirus) 2009-02-02 00:00:00 Completed Lynn Brizuela Hepatitis A 2009-02-02 00:00:00 Completed Lynn Brizuela - External HPV (Human Papillomavirus) 2009-02-02 00:00:00 Completed Lynn Brizuela - External Hepatitis A 2009-02-02 00:00:00 Completed Lynn Brizuela HPV (Human Papillomavirus) 2009-02-02 00:00:00 Completed Lynn Brizuela Hepatitis A 2009-02-02 00:00:00 Completed Lynn Brizuela HPV (Human Papillomavirus) 2009-02-02 00:00:00 Completed Lynn Brizuela HPV (Human Papillomavirus) 2008-09-30 00:00:00 Completed Lynn Brizuela HPV (Human Papillomavirus) 2008-09-30 00:00:00 Completed Lynn Brizuela - External HPV (Human Papillomavirus) 2008-09-30 00:00:00 Completed Lynn Brizuela HPV (Human Papillomavirus) 2008-09-30 00:00:00 Completed Lynn Brizuela Tdap- (Boostrix, Adacel) 2008-07-31 00:00:00 Completed Lynn Kongold Hepatitis A 2008-07-31 00:00:00 Completed Lynn Brizuela HPV (Human Papillomavirus) 2008-07-31 00:00:00 Completed Lynn Brizuela Meningococcal Vaccine- Conjugate(Menactra) 2008-07-31 00:00:00 Completed Lynn Seybold Varicella Vaccine 2008-07-31 00:00:00 Completed Lynn Brizuela Tdap- (Boostrix, Adacel) 2008-07-31 00:00:00 Completed Lynn Brizuela - External Hepatitis A 2008-07-31 00:00:00 Completed Lynn Brizuela - External HPV (Human Papillomavirus) 2008-07-31 00:00:00 Completed Lynn Brizuela - External Meningococcal Vaccine- Conjugate(Menactra) 2008-07-31 00:00:00 Completed Lynn Kongold - External Varicella Vaccine 2008-07-31 00:00:00 Completed Lynn Brizuela - External Tdap- (Boostrix, Adacel) 2008-07-31 00:00:00 Completed Lynn Brizuela Hepatitis A 2008-07-31 00:00:00 Completed Lynn Brizuela HPV (Human Papillomavirus) 2008-07-31 00:00:00 Completed Lynn Brizuela Meningococcal Vaccine- Conjugate(Menactra) 2008-07-31 00:00:00 Completed Lynn Wagnerybkeshav Varicella Vaccine 2008-07-31 00:00:00 Completed Lynn Brizuela Tdap- (Boostrix, Adacel) 2008-07-31 00:00:00 Completed Lynn Brizuela Hepatitis A 2008-07-31 00:00:00 Completed Lynn Brizuela HPV (Human Papillomavirus) 2008-07-31 00:00:00 Completed Lynn Brizuela Meningococcal Vaccine- Conjugate(Menactra) 2008-07-31 00:00:00 Completed Lynn Wagnerybkeshav Varicella Vaccine 2008-07-31 00:00:00 Completed Lynn Brizuela MMR- Measles, Mumps, Rubella 1999-09-09 00:00:00 Completed Lynn Wagnerybold Varicella Vaccine 1999-09-09 00:00:00 Completed Lynn Brizuela IPV- Inactivated Polio Vaccine 1999-09-09 00:00:00 Completed Lynn Brizuela MMR- Measles, Mumps, Rubella 1999-09-09 00:00:00 Completed Lynn Kongold - External Varicella Vaccine 1999-09-09 00:00:00 Completed Lynn Brizuela - External IPV- Inactivated Polio Vaccine 1999-09-09 00:00:00 Completed Lynn Brizuela - External MMR- Measles, Mumps, Rubella 1999-09-09 00:00:00 Completed Lynn Seybold Varicella Vaccine 1999-09-09 00:00:00 Completed Lynn Wagnerybold IPV- Inactivated Polio Vaccine 1999-09-09 00:00:00 Completed Lynn Wagnerybold MMR- Measles, Mumps, Rubella 1999-09-09 00:00:00 Completed Lynn Seybold Varicella Vaccine 1999-09-09 00:00:00 Completed Lynn Wagnerybold IPV- Inactivated Polio Vaccine 1999-09-09 00:00:00 Completed Lynn Seybold Varicella Vaccine 1999-08-01 00:00:00 Completed Lynn Seybold - External MMR- Measles, Mumps, Rubella 1996-02-23 00:00:00 Completed Lynn Wagnerybold MMR- Measles, Mumps, Rubella 1996-02-23 00:00:00 Completed Lynn Seybold - External MMR- Measles, Mumps, Rubella 1996-02-23 00:00:00 Completed Lynn Wagnerybold MMR- Measles, Mumps, Rubella 1996-02-23 00:00:00 Completed Lynn Wagnerybold OPV- Oral Polio Vaccine 1995 00:00:00 Completed Lynn Wagnerybkeshav Hepatitis B, Unspecified 1995 00:00:00 Completed Lynn Seybold OPV- Oral Polio Vaccine 1995 00:00:00 Completed Lynn Wagnerybkeshav Hepatitis B, Unspecified 1995 00:00:00 Completed Lynn Seybold - External OPV- Oral Polio Vaccine 1995 00:00:00 Completed Lynn Wagnerybold - External Hepatitis B, Unspecified 1995 00:00:00 Completed Lynn Seybold OPV- Oral Polio Vaccine 1995 00:00:00 Completed Lynn Wagnerybold Hepatitis B, Unspecified 1995 00:00:00 Completed Lynn Seybold OPV- Oral Polio Vaccine 1995 00:00:00 Completed Lynn Seybold OPV- Oral Polio Vaccine 1995 00:00:00 Completed Lynn Seybold OPV- Oral Polio Vaccine 1995 00:00:00 Completed Lynn Seybold - External OPV- Oral Polio Vaccine 1995 00:00:00 Completed Lynn Brizuela OPV- Oral Polio Vaccine 1995 00:00:00 Completed Lynn Wagnerybold OPV- Oral Polio Vaccine 1995 00:00:00 Completed Lynn Brizuela OPV- Oral Polio Vaccine 1995 00:00:00 Completed Lynn Brizuela - External OPV- Oral Polio Vaccine 1995 00:00:00 Completed Lynn Brizuela Hepatitis B, Unspecified 1995 00:00:00 Completed Lynn Brizuela Hepatitis B, Unspecified 1995 00:00:00 Completed Lynn Brizuela - External Hepatitis B, Unspecified 1995 00:00:00 Completed Lynn Brizuela Hepatitis B, Unspecified 1995 00:00:00 Completed Lynn Brizuela Hepatitis B, Unspecified 1995 00:00:00 Completed Lynn Brizuela Hepatitis B, Unspecified 1995 00:00:00 Completed Lynn Brizuela - External Hepatitis B, Unspecified 1995 00:00:00 Completed Lynn Brizuela Hepatitis B, Unspecified 1995 00:00:00 Completed Lynn Brizuela Outside Tb Screening Unknown Completed Lynn Martinez External Tdap- (Boostrix, Adacel) Unknown Completed Lynn Martinez External Influenza Virus Vaccine, age 6 months and up Unknown Completed Lynn Martinez External Covid-19 Vaccine Moderna (Spikevax), Mrna-lnp, Johnathan Protein, Pf Unknown Completed Lynn Brizuela - External MMR- Measles, Mumps, Rubella Unknown Completed Lynn Brizuela - External Hepatitis A Unknown Completed Lynn denise - External Hepatitis B, Unspecified Unknown Completed Lynn Brizuela - External HPV (Human Papillomavirus) Unknown Completed Lynn Bright ld - External Meningococcal Vaccine- Conjugate(Menactra) Unknown Completed Lynn denise - External Varicella Vaccine Unknown Completed Lyle Brizuela - External IPV- Inactivated Polio Vaccine Unknown Completed Lynn Martinez External OPV- Oral Polio Vaccine Unknown Completed Lynn Martinez External Covid-19 Vaccine (UNSPECIFIED) Unknown Completed Lynn Seybold - External Influenza Virus Vaccine, Unspecified Formulation Unknown Completed Lynn Seybold - External Influenza, Injectable, Mdck, Quadrivalent With Preservative Unknown Completed [facility] - External COVID-19 (SARS-COV-2) vaccine, unspecified COVID-19 (SARS-COV-2) vaccine, unspecified Unknown Completed [facility] influenza, unspecified formulation influenza, unspecified formulation Unknown Completed [facility] HPV, unspecified formulation HPV, unspecified formulation Unknown Completed [facility] Tdap Tdap Unknown Completed [facility] varicella varicella Unknown Completed [facility] Vital Signs Vital Name Observation Time Observation Value Comments S ource Height 2023-07-21 00:00:00 62 [in_i] [facility] Body Weight 2023-07-21 00:00:00 164 [lb_av] [facility] BP Diastolic 2023-07-21 00:00:00 78 mm[Hg] [facility] BMI (Body Mass Index) 2023-07-21 00:00:00 30 kg/m2 [facility] BP Systolic 2023-07-21 00:00:00 125 mm[Hg] [facility] BP Systolic 2023-07-07 00:00:00 112 mm[Hg] [facility] BP Diastolic 2023-07-07 00:00:00 72 mm[Hg] [facility] BMI (Body Mass Index) 2023-07-07 00:00:00 31.5 kg/m2 [facility] Body Weight 2023-07-07 00:00:00 172 [lb_av] [facility] Height 2023-07-07 00:00:00 62 [in_i] [facility] BP Diastolic 2023-06-23 00:00:00 82 mm[Hg] [facility] BP Systolic 2023-06-23 00:00:00 130 mm[Hg] [facility] Body Weight 2023-06-23 00:00:00 172 [lb_av] [facility] BMI (Body Mass Index) 2023-06-23 00:00:00 31.5 kg/m2 [facility] Height 2023-06-23 00:00:00 62 [in_i] [facility] BP Diastolic 2023-05-26 00:00:00 80 mm[Hg] [facility] BP Systolic 2023-05-26 00:00:00 139 mm[Hg] [facility] Body Weight 2023-05-26 00:00:00 202 [lb_av] [facility] Height 2023-05-26 00:00:00 62 [in_i] [facility] BMI (Body Mass Index) 2023-05-26 00:00:00 36.9 kg/m2 [facility] BMI (Body Mass Index) 2023-05-16 00:00:00 36.6 kg/m2 [facility] BP Diastolic 2023-05-16 00:00:00 82 mm[Hg] [facility] BP Systolic 2023-05-16 00:00:00 132 mm[Hg] [facility] Height 2023-05-16 00:00:00 62 [in_i] [facility] Body Weight 2023-05-16 00:00:00 200 [lb_av] [facility] Body Weight 2023-05-02 00:00:00 197 [lb_av] [facility] BP Systolic 2023-05-02 00:00:00 110 mm[Hg] [facility] Height 2023-05-02 00:00:00 62 [in_i] [facility] BMI (Body Mass Index) 2023-05-02 00:00:00 36 kg/m2 [facility] BP Diastolic 2023-05-02 00:00:00 74 mm[Hg] [facility] Height 2023-04-14 00:00:00 62 [in_i] [facility] Body Weight 2023-04-14 00:00:00 193 [lb_av] [facility] BMI (Body Mass Index) 2023-04-14 00:00:00 35.3 kg/m2 [facility] BP Diastolic 2023-04-14 00:00:00 78 mm[Hg] [facility] BP Systolic 2023-04-14 00:00:00 126 mm[Hg] [facility] Body Weight 2023-03-31 00:00:00 193 [lb_av] [facility] BP Diastolic 2023-03-31 00:00:00 79 mm[Hg] [facility] BP Systolic 2023-03-31 00:00:00 134 mm[Hg] [facility] Body height 2022-11-17 13:05:00 160 cm Sridevi ey Seybold - External Body weight 2022-11-17 13:05:00 84.823 kg Sridevi ey Seybold - External BMI 2022-11-17 13:05:00 33.13 kg/m2 Sridevi ey Seybold - External Height 2022-06-02 00:00:00 62 [in_i] [facility] BMI (Body Mass Index) 2022-06-02 00:00:00 30.5 kg/m2 [facility] Body Weight 2022-06-02 00:00:00 167 [lb_av] [facility] Systolic blood pressure 2021-04-30 14:12:00 106 mm[Hg] Lynn Seybo ld Diastolic blood pressure 2021-04-30 14:12:00 64 mm[Hg] Lynn Seybo ld Heart rate 2021-04-30 14:12:00 104 /min Kelse y Seybold Body temperature 2021-04-30 14:12:00 37.39 Candie Lynn Seybold Respiratory rate 2021-04-30 14:12:00 14 /min Lynn Seybold Body height 2021-04-30 14:12:00 160 cm Sridevi ey Seybold Body weight 2021-04-30 14:12:00 67.132 kg Sridevi ey Seybold BMI 2021-04-30 14:12:00 26.22 kg/m2 Sridevi ey Seybold Systolic blood pressure 2021-01-11 17:31:00 112 mm[Hg] Lynn Seybo ld Diastolic blood pressure 2021-01-11 17:31:00 68 mm[Hg] Lynn Seybo ld Heart rate 2021-01-11 17:31:00 73 /min Kelse y Seybold Body temperature 2021-01-11 17:31:00 37.17 Candie Lynn Seybold Respiratory rate 2021-01-11 17:31:00 14 /min Lynn Seybold Body height 2021-01-11 17:31:00 160 cm Sridevi ey Seybold Body weight 2021-01-11 17:31:00 67.132 kg Sridevi ey Seybold BMI 2021-01-11 17:31:00 26.22 kg/m2 Sridevi ey Seybold Procedures Procedure Date / Time Performed Performing Clinic[facility] n Source [id number] 2023-05-31 00:00:00 [facility] [id number] 2019-05-21 00:00:00 [facility] Cholecystectomy 2014-02-13 00:00:00 [facility] Back / Spine Surgery 2012-10-05 00:00:00 [facility] Encounters Start Date/Time End Date/Time Encounter Type Admission Type Attending [facility] Care Department Encounter ID Source 2024-03-11 10:42:01 Outpatient none, none CLS CLS [id number] [facility] 2019-05-21 02:34:00 Inpatient Adonis Jacobs [facility] [id number] [facility] 2023-07-21 00:00:00 2023-07-21 00:00:00 Adonis Jacobs MD: [place] [address] , Ph. [facility]_ [place] [facility] [id number] [facility] 2023-07-07 00:00:00 2023-07-07 00:00:00 Adonis Jacobs MD: [address] [place] [address], [address], [place] [address] , Ph. [facility]_ [place] [facility]* [id number] [facility] 2023-06-23 00:00:00 2023-06-23 00:00:00 Adonis Jacobs MD: [place] [address] , Ph. [facility] Office [id number] [facility] 2023-05-31 09:51:00 2023-06-02 13:52:00 Inpatient Adonis [facility] [id number] [facility] 2023-05-26 00:00:2023-05-26 00:00:00 Adonis Jacobs MD: [address] [place] [address] , Ph. [facility]_ Reynaldo_Chandana [facility] [place] [facility] [id number] [facility] 2023-05-16 00:00:00 2023-05-16 00:00:00 Adonis Jacobs MD: [address] [facility], [address] [id number] , Ph. [facility] Reynaldo_Chandana [facility] [place] [facility]* [id number] [facility] 2023-05-08 00:00:00 2023-05-08 00:00:00 Outpatient [facility]_ Shekhar [facility] [id number] [facility] 2023-05-02 00:00:00 2023-05-02 00:00:00 Adonis Jacobs MD: [address] [facility], [address], [place] [address] , Ph. [facility]_ Reynaldo_Chandana [facility] [place] [facility]* [id number] [facility] 2023-05-02 00:00:00 2023-05-02 00:00:00 Adonis Jacobs MD: [address] [facility], [address], [place] [address] , Ph. [facility] [place] [facility]* [id number] [facility] 2023-05-01 00:00:00 2023-05-01 00:00:00 Outpatient [facility] _Reynaldo [facility] PRIV [id number] [facility] 2023-04-21 00:00:00 2023-04-21 00:00:00 [facility] [id number] [facility] 2023-04-14 00:00:00 2023-04-14 00:00:00 Outpatient [facility]_ Reynaldo_G [facility] PRIV [id number] [facility] 2023-04-14 00:00:00 2023-04-14 00:00:00 Adonis Jacobs MD: [address] [place] [address] , Ph. [facility] [place] [facility] [id number] [facility] 2023-04-11 11:13:00 2023-04-11 11:13:00 Outpatient FLACO Reynaldo Adonis [facility] [id number] [address] [facility] 2023-04-07 15:29:00 2023-04-07 15:29:00 Outpatient FLACO Reynaldo Adonis [facility] [id number] [facility] 2023-03-31 00:00:00 2023-03-31 00:00:00 Outpatient [facility]_ Reynaldo_G [facility] PRIV [id number] [facility] 2023-03-31 00:00:00 2023-03-31 00:00:00 Adonis Jacobs MD: [address] [place] [address] , Ph. [facility] [place] [facility] [id number] [facility] 2023-03-25 00:00:00 2023-03-25 00:00:00 Outpatient GC_[facility] _Reynaldo [facility] PRIV [id number] [facility] 2023-03-15 00:00:00 2023-03-15 00:00:00 Outpatient [facility]_ Reynaldo_G PRIV PRIV [id number] [facility] 2023-03-07 00:00:00 2023-03-07 00:00:00 Outpatient [facility]_ Reynaldo_G [facility] PRIV [id number] [facility] 2023-03-07 00:00:00 2023-03-07 00:00:00 Adonis Jacobs MD: [address] [facility], [address], [place] [address] , Ph. [facility] [place] [facility]* [id number] [facility] 2023-01-20 00:00:00 2023-01-20 00:00:00 Outpatient [facility]_ [place]_G PRIV PRIV [id number] [facility] 2023-01-17 00:00:00 2023-01-17 00:00:00 Outpatient GC_[facility] _[place] PRIV PRIV [id number] [facility] 2023-01-17 00:00:00 2023-01-17 00:00:00 Outpatient [facility]_ [place]_G PRIV PRIV [id number] [facility] 2023-01-17 00:00:00 2023-01-17 00:00:00 Outpatient GC_[facility] _[place] PRIV PRIV [id number] [facility] 2023-01-16 00:00:00 2023-01-16 00:00:00 Outpatient [facility]_ [place] PRIV PRIV [id number] [facility] 2022-12-23 00:00:00 2022-12-23 00:00:00 Outpatient [facility]_ [place]_G PRIV PRIV [id number] [facility] 2022-12-23 00:00:00 2022-12-23 00:00:00 Outpatient [facility]_ [place] PRIV PRIV [id number] [facility] 2022-12-21 00:00:00 2022-12-21 00:00:00 Outpatient [facility]_ [place]_G PRIV PRIV [id number] [facility] 2022-11-21 00:00:00 2022-11-21 00:00:00 Outpatient FRANCK ROTHMAN [id number] Lynn [facility]uel[facility] 2022-11-21 00:00:00 2022-11-21 00:00:00 Outpatient FRANCK ROTHMAN [id number] [facility] 2022-11-17 08:15:00 2022-11-17 08:15:00 Outpatient INDRA STEIN [id number] [facility] 2022-11-17 08:00:00 2022-11-17 08:00:00 Outpatient [facility] [id number] [facility] 2022-[facility]-17 00:00:00 2022-11-17 00:00:00 Outpatient FRANCK ROTHMAN [id number] [facility] 2022-10-25 00:00:00 2022-10-25 00:00:00 Outpatient [facility]_ [place]_G PRIV PRIV [id number] [facility] 2022-10-25 00:00:00 2022-10-25 00:00:00 Outpatient [facility]_ [place]_G PRIV PRIV [id number] [facility] 2022-10-25 00:00:00 2022-10-25 00:00:00 Outpatient [facility]_ [place]_G PRIV PRIV [id number] [facility] 2022-10-25 00:00:00 2022-10-25 00:00:00 Outpatient [facility]_ [place]_G PRIV PRIV [id number] [facility] 2022-10-25 00:00:00 2022-10-25 00:00:00 Outpatient [facility]_ [place] PRIV PRIV [id number] [facility] 2022-10-25 00:00:00 2022-10-25 00:00:00 Outpatient [facility]_ [place] PRIV PRIV [id number] [facility] 2022-10-21 00:00:00 2022-10-21 00:00:00 Outpatient [facility]_ [place] PRIV PRIV [id number] [facility] 2022-10-13 00:00:00 2022-10-13 00:00:00 Outpatient [facility]_ [place]_G PRIV PRIV [id number] [facility] 2022-10-12 00:00:00 2022-10-12 00:00:00 Outpatient [facility]_ [place]_G PRIV PRIV [id number] [facility] 2022-10-12 00:00:00 2022-10-12 00:00:00 Outpatient [facility]_ [place] PRIV PRIV [id number] [facility] 2022-10-10 00:00:00 2022-10-10 00:00:00 Outpatient [facility]_ [place] PRIV PRIV [id number] [facility] 2022-10-03 00:00:00 2022-10-03 00:00:00 Outpatient [facility]_ [place] PRIV PRIV [id number] [facility] 2022-09-26 00:00:00 2022-09-26 00:00:00 Outpatient [facility]_ [place] PRIV PRIV [id number] [facility] 2022-09-11 21:30:00 2022-09-11 21:30:00 Outpatient AMANDA DINH [id number] [facility] 2022-08-28 00:00:00 2022-08-28 00:00:00 Outpatient [facility]_ [place] PRIV PRIV [id number] [facility] 2022-08-10 14:00:00 2022-08-10 14:00:[address] [id number] [facility] 2022-07-31 00:00:00 2022-07-31 00:00:00 Outpatient [facility]_ [place]_G PRIV PRIV [id number] [facility] 2022-07-25 00:00:00 2022-07-25 00:00:00 Outpatient [facility]_ [place] PRIV PRIV [id number] [facility] 2022-07-25 00:00:2022-07-25 00:00:00 Outpatient [facility]_ [place] PRIV PRIV [id number] [facility] 2022-07-20 00:00:00 2022-07-20 00:00:00 Outpatient [facility]_ [place] PRIV PRIV [id number] [facility] 2022-07-14 14:30:00 2022-07-14 14:30:00 Outpatient CORIE JACKSON LYNN [id number] [facility] 2022-07-14 00:00:00 2022-07-14 00:00:[address] LYNN ESTEVES [id number] [facility] 2022-07-04 11:00:00 2022-07-04 11:00:[address] LYNN ESTEVES [id number] [facility] 2022-06-02 00:00:00 2022-06-02 00:00:00 Outpatient [facility]_ [place] PRIV PRIV [id number] [facility] 2022-06-02 00:00:00 2022-06-02 00:00:00 Outpatient [facility]_ [place] PRIV PRIV [id number] [facility] 2022-06-02 00:00:00 2022-06-02 00:00:00 Outpatient [facility]_ [place] PRIV PRIV [id number] [facility] 2022-06-02 00:00:00 2022-06-02 00:00:00 Adonis Jacobs MD: [address] [facility], [address], [place] [address] , Ph. [facility] [place] [facility]* [id number] [facility] 2022-05-23 00:00:00 2022-05-23 00:00:00 Outpatient [facility]_ [place] PRIV PRIV [id number] [facility] 2022-05-23 00:00:00 2022-05-23 00:00:00 Outpatient [facility]_ [place]_G PRIV PRIV [id number] [facility] 2022-05-12 00:00:00 2022-05-12 00:00:00 Outpatient GC_[facility]_ Reynaldo_G PRIV PRIV [id number] [facility] 2022-02-08 14:30:00 2022-02-08 14:30:00 Outpatient HUNDL, RUDDY ESTEVES [id number] [facility] 2021-12-09 00:00:00 2021-12-09 00:00:00 Outpatient HUNDL, RUDDY ESTEVES [id number] [facility] 2021-12-09 00:00:00 2021-12-09 00:00:00 Outpatient HUNDL, RUDDY ESTEVES [id number] [facility] 2021-11-04 13:45:00 2021-11-04 13:45:00 Outpatient CORIE JACKSON [id number] [facility] 2021-11-04 00:00:00 2021-11-04 00:00:00 Outpatient ROMANNILSA MANDUJANO [id number] [facility] 2021-08-20 15:05:00 2021-08-20 15:05:00 Outpatient [id number]-[id number] LYNN ESTEVES [id number] [facility] 2021-08-20 14:50:00 2021-08-20 14:50:00 Outpatient TESTING, LJ LYNN ESTEVES [id number] Lnyn [facility] 2021-08-20 00:00:00 2021-08-20 00:00:00 Outpatient HUNDL, RUDDY ESTEVES [id number] Lynn [facility] 2021-08-20 00:00:00 2021-08-20 00:00:00 Outpatient HUNDOh, RUDDY ESTEVES [id number] Lynn [facility] 2021-06-15 00:00:00 2021-06-15 00:00:[address] [id number] [facility] 2021-04-30 09:30:00 2021-04-30 09:45:00 Office Visit Sree Karimi [id number] [facility] 2021-04-21 00:00:00 2021-04-21 00:00:[address] LYNN ESTEVES [id number] [facility] 2021-03-23 08:15:00 2021-03-23 08:15:00 Outpatient CORIE JACKSON LYNN ESTEVES [id number] [facility] 2021-03-22 00:00:00 2021-03-22 00:00:00 Outpatient MACIEL RUDDY ESTEVES [id number] [facility] 2021-03-15 00:00:00 2021-03-15 00:00:00 Outpatient MACIEL RUDDY ESTEVES [id number] [facility] 2021-03-15 00:00:00 2021-03-15 00:00:[address] LYNN ESTEVES [id number] [facility] 2021-03-05 13:30:00 2021-03-05 13:30:[address] LYNN ESTEVES [id number] [facility] 2021-03-05 13:30:00 2021-03-05 13:30:00 Outpatient TUNGNADER ESCOTO LYNN ESTEVES [id number] [facility] 2021-02-11 00:00:00 2021-02-11 00:00:[address] LYNN ESTEVES [id number] [facility] 2021-02-10 11:30:00 2021-02-10 11:30:[address] [place] [id number] [facility] 2021-02-10 00:00:00 2021-02-10 00:00:00 Outpatient MACIEL RUDDY ESTEVES [id number] [facility] 2021-01-20 00:00:00 2021-01-20 00:00:[address] LYNN ESTEVES [id number] [facility] 2021-01-11 16:00:00 2021-01-11 16:00:[address] [id number] [facility] 2020-12-29 00:00:00 2020-12-29 00:00:00 Outpatient NADER RUBY [id number] [facility] 2020-11-24 10:00:00 2020-11-24 10:00:00 Outpatient CORIE JACKSON [id number] [facility] 2020-11-23 09:00:00 2020-11-23 09:00:00 Outpatient RENETTA CORIE ESTEVES [id number] [facility] 2020-11-23 00:00:00 2020-11-23 00:00:00 Outpatient NILSA ROMAN [id number] [facility] 2020-10-15 10:40:00 2020-10-15 10:40:00 Outpatient COVID-MODER NA LUIS STEFFI LYNN ESTEVES [id number] [facility] 2020-09-28 11:00:00 2020-09-28 11:00:00 Outpatient NADER RUBY [id number] [facility] 2020-08-24 11:15:00 2020-08-24 11:15:00 Outpatient RENETTA CORIE ESTEVES [id number] [facility] 2020-08-24 00:00:00 2020-08-24 00:00:00 Outpatient NILSA ROMAN [id number] [facility] 2020-08-21 16:30:00 2020-08-21 16:30:00 Outpatient NADER RUBY [id number] [facility] 2020-06-03 12:10:00 2020-06-03 12:10:00 Outpatient [facility]_ [place]_G PRIV PRIV [id number] [facility] 2017-05-10 13:30:00 2017-05-10 13:30:00 Outpatient [facility] [id number] [facility] 2017-05-10 08:48:00 2017-05-10 08:48:00 Outpatient [facility] [id number] [facility] Results Test Description Test Time Test Comments Results Result Co mments Source Hemoglobin and Hematocrit panel - [id number] 05:31:00* Test Item Value Reference Range Interpretation Comme nts hemoglobin (test code = hemoglobin) 8.7 g/dL 10.1-13.8 L hematocrit (test code = hematocrit) 28.5 % 32.5-41.8 L performing lab: (test code = performing lab:) [facility] [id number] 16:20:00* Test Item Value Reference Range Interpretation Comme nts AG HEPATITIS B SURFACE (test code = HBSAG) NONREACTIVE NONREACTIVE AB HEPATITIS C [id number] 16:20:00* Test Item Value Reference Range Interpretation Comme nts AB HEPATITIS C (test code = HCVAB) NONREACTIVE NONREACTIVE SIGNAL TO CUTOFF (test code = CUTOFF) 0.19 <0.80 N AB [id number] 16:20:00* Test Item Value Reference Range Interpretation Comme nts AB TREPONEMA (test code = TREPAB) NONREACTIVE NONREACTIVE AB HIV 1 16:20:00* Test Item Value Reference Range Interpretation Comme nts AB HIV 1 2 (test code = [id number]) NONREACTIVE NONREACTIVE Done by [employer] 4[employer] HIV Ag/Ab Combo Screen COMPREHENSIVE METABOLIC [id number] 15:22:00* Test Item Value Reference Range Interpretation Comme nts SODIUM (test code = NA) 137 mEq/L 135-145 N POTASSIUM (test code = K) 4.2 mEq/L 3.5-5.0 N CHLORIDE (test code = CL) 103 mEq/L 100-115 N CARBON DIOXIDE (test code = CO2) 20 mEq/L 22-31 L ANION GAP (test code = GAP) 18.50 10-20 N GLUCOSE (test code = GLU) 71 mg/dL 65-110 N BLOOD UREA NITROGEN (test code = BUN) 10 mg/dL 7-18 N GLOMERULAR FILTRATION RATE (test code = GFR) 131 ml/min >60 N The Glomerular Filtration Rate is a calculated parameterbased on serum Creatinine, patient age and sex. GFR valuesless than 60 mL/min/1.73 square meters are indicative ofChronic Kidney Disease. Values less than 15 mL/min/1.73square meters indicate Kidney failure. The calculation forGFR is based on the CKD-EPI (202) calculation. This formulais race indifferent and is the recommended formula for GFRby the National Kidney Foundation for Adults.The GFR will not calculate if the sex is unknown or if thepatient's age is <18 years. CREATININE (test code = CREAT) 0.5 mg/dL 0.5-1.0 N TOTAL PROTEIN (test code = PROT) 5.7 gm/dL 6.3-8.2 L ALBUMIN (test code = ALB) 2.4 gm/dL 3.4-4.8 L CALCIUM (test code = CA) 9.3 mg/dL 8.4-10.2 N BILIRUBIN TOTAL (test code = BILT) 0.4 mg/dL 0.2-1.0 N SGOT/AST (test code = AST) 25 units/L 15-37 N SGPT/ALT (test code = ALT) 15 units/L 12-78 N ALKALINE PHOSPHATASE TOTAL (test code = ALKP) 189 units/L 46-116 H CBC W/AUTO [id number] 14:46:00* Test Item Value Reference Range Interpretation Comme nts WHITE BLOOD CELL (test code = WBC) 7.8 K/mm3 6.5-12.3 N RED BLOOD CELL (test code = RBC) 4.19 M/mm3 3.51-4.69 N HEMOGLOBIN (test code = HGB) 10.2 g/dL 10.1-13.8 N HEMATOCRIT (test code = HCT) 33.4 % 32.5-41.8 N MEAN CELL VOLUME (test code = MCV) 79.7 fL 84.6-96.6 L MEAN CELL HGB (test code = MCH) 24.3 pg 27.3-33.9 L MEAN CELL HGB CONCETRATION ( test code = MCHC) 30.5 gm/dL 32.0-34.2 L RED CELL DISTRIBUTION WIDTH (test code = RDW) 13.4 % 12.2-16.3 N PLATELET COUNT (test code = PLT) 195 K/mm3 134-363 N IMMATURE PLATELET FRACTION ( test code = IPF) 14.2 % 0.0-10.8 H MEAN PLATELET VOLUME (test c ode = MPV) 13.0 fL 9.2-12.7 H NEUTROPHIL % (test code = NT%) 77.9 % 57.9-77.3 H LYMPHOCYTE % (test code = LY%) 11.0 % 14.5-29.7 L MONOCYTE % (test code = MO%) 8.2 % 3.6-10.2 N EOSINOPHIL % (test code = EO%) 1.1 % 0.0-3.0 N BASOPHIL % (test code = BA%) 0.3 % 0.1-0.9 N NEUTROPHIL # (test code = NT#) 6.1 K/mm3 LYMPHOCYTE # (test code = LY#) 0.9 K/mm3 MONOCYTE # (test code = MO#) 0.6 K/mm3 EOSINOPHIL # (test code = EO#) 0.09 K/mm3 BASOPHIL # (test code = BA#) 0.0 K/mm3 CBC W Auto Differential panel - [id number] 12:31:00* Test Item Value Reference Range Interpretation Comme nts white blood cell (test code = white blood cell) 7.8 K/mm3 6.5-12.3 red blood cell (test code = red blood cell) 4.19 M/mm3 3.51-4.69 hemoglobin (test code = hemoglobin) 10.2 g/dL 10.1-13.8 hematocrit (test code = hematocrit) 33.4 % 32.5-41.8 mean cell volume (test code = mean cell volume) 79.7 fL 84.6-96.6 L mean cell HGB (test code = m sergio cell HGB) 24.3 pg 27.3-33.9 L mean cell HGB concetration ( test code = mean cell HGB concetration) 30.5 gm/dL 32.0-34.2 L red cell distribution width (test code = red cell distribution width) 13.4 % 12.2-16.3 platelet count (test code = platelet count) 195 K/mm3 134-363 immature platelet fraction ( test code = immature platelet fraction) 14.2 % 0.0-10.8 H mean platelet volume (test c ode = mean platelet volume) 13.0 fL 9.2-12.7 H neutrophil % (test code = neutrophil %) 77.9 % 57.9-77.3 H lymphocyte % (test code = lymphocyte %) 11.0 % 14.5-29.7 L monocyte % (test code = mono cyte %) 8.2 % 3.6-10.2 eosinophil % (test code = eosinophil %) 1.1 % 0.0-3.0 basophil % (test code = baso smita %) 0.3 % 0.1-0.9 neutrophil # (test code = neutrophil #) 6.1 K/mm3 lymphocyte # (test code = lymphocyte #) 0.9 K/mm3 monocyte # (test code = mono cyte #) 0.6 K/mm3 eosinophil # (test code = eosinophil #) 0.09 K/mm3 basophil # (test code = baso smita #) 0.0 K/mm3 performing lab: (test code = performing lab:) [facility] - Serum or [id number] 12:31:00* Test Item Value Reference Range Interpretation Comme nts sodium (test code = sodium) 137 mEq/L 135-145 potassium (test code = potassium) 4.2 mEq/L 3.5-5.0 chloride (test code = chloride) 103 mEq/L 100-115 carbon dioxide (test code = carbon dioxide) 20 mEq/L 22-31 L anion gap (test code = anion gap) 18.50 10-20 glucose (test code = glucose) 71 mg/dL 65-110 blood urea nitrogen (test co de = blood urea nitrogen) 10 mg/dL 7-18 glomerular filtration rate ( test code = glomerular filtration rate) 131 mL/min >60 creatinine (test code = creatinine) 0.5 mg/dL 0.5-1.0 total protein (test code = t otal protein) 5.7 gm/dL 6.3-8.2 L albumin (test code = albumin) 2.4 gm/dL 3.4-4.8 L calcium (test code = calcium) 9.3 mg/dL 8.4-10.2 bilirubin total (test code = bilirubin total) 0.4 mg/dL 0.2-1.0 SGOT/AST (test code = SGOT/AST) 25 units/L 15-37 SGPT/ALT (test code = SGPT/ALT) 15 units/L 12-78 alkaline phosphatase total ( test code = alkaline phosphatase total) 189 units/L 46-116 H performing lab: (test code = performing lab:) [facility] surface Ag [Presence] in [id number] 12:31:00* Test Item Value Reference Range Interpretation Comme nts Ag hepatitis B surface (test code = Ag hepatitis B surface) nonreactive nonreactive performing lab: (test code = performing lab:) [facility] HIV 1 12:31:00* Test Item Value Reference Range Interpretation Comme nts Ab HIV 1 2 (test code = Ab H IV 1 2) nonreactive nonreactive performing lab: (test code = performing lab:) [facility] [id number] 12:31:00* Test Item Value Reference Range Interpretation Comme nts Ab treponema (test code = Ab treponema) nonreactive nonreactive performing lab: (test code = performing lab:) [facility] hepatitis C [id number] 12:31:00* Test Item Value Reference Range Interpretation Comme nts Ab hepatitis C (test code = Ab hepatitis C) nonreactive nonreactive signal to cutoff (test code = signal to cutoff) 0.19 <0.80 performing lab: (test code = performing lab:) [facility] JosephUrinalysis macro (dipstick) panel - [id number] 14:17:00* Test Item Value Reference Range Interpretation Comme nts Protein (test code = Protein) Negative Glucose (test code = Glucose) Normal [facility]Streptococcus agalactiae [Presence] in Specimen by Organism specific [id number] 00:00:00* Test Item Value Reference Range Interpretation Comme nts culture, genital (strep B) ( test code = culture, genital (strep B)) negative negative [facility]+2 Ab+HIV1 p24 Ag [Presence] in Serum or Plasma by [id number] 00:00:00* Test Item Value Reference Range Interpretation Comme nts HIV Ag/Ab (test code = HIV Ag/Ab) non-reactive non-reactive HIV-1 P24 Ag (test code = HI V-1 P24 Ag) non-reactive non-reactive HIV 1+2 Ab (test code = HIV 1+2 Ab) non-reactive non-reactive [facility] [Presence] in Serum by [id number] 00:00:00* Test Item Value Reference Range Interpretation Comme nts RPR (test code = RPR) non-reactive non-reactive [facility] 1 19:35:00* Test Item Value Reference Range Interpretation Comme nts AB HIV 1 2 (test code = HIM83RY) NONREACTIVE NONREACTIVE Done by [facility] HIV Ag/Ab Combo Screen RAPID PLASMA [id number] 18:43:00* Test Item Value Reference Range Interpretation Comme nts RAPID PLASMA REAGIN (test co de = RPR) NON-REACTIVE NON-REACT HCG [id number] 17:41:00* Test Item Value Reference Range Interpretation Comme nts HCG SERUM (test code = HCG) 6615 INTERPRETATION:V ALUES BETWEEN 15-20 milliInternational units/mL NEED TO BERETESTED WITHIN 48 HOURS. All units for these ranges are in milliInternationalunits/mL0-1 WK AFTER CONCEPTION 0-50 1-2 WKS AFTER CONCEPTION 40-3002-3 WKS AFTER CONCEPTION 100-1,0003-4 WKS AFTER CONCEPTION 500-6,0001-2 MONTHS AFTER CONCEPTION 5,000-200,0002-3 MONTHS AFTER CONCEPTION 10,000-100,0002ND TRIMESTER 3,000-50,0003RD TRIMESTER 1,000-50,000 SPECIMENS WITH AN HCG LEVEL FROM 0-6 milliInternationalunits/mL SHOULD BE CONSIDERED NEGATIVE CBC W/AUTO [id number] 17:27:00* Test Item Value Reference Range Interpretation Comme nts WHITE BLOOD CELL (test code = WBC) 8.5 K/mm3 6.5-12.3 N RED BLOOD CELL (test code = RBC) 3.63 M/mm3 3.51-4.69 N HEMOGLOBIN (test code = HGB) 10.4 g/dL 10.1-13.8 N HEMATOCRIT (test code = HCT) 31.9 % 32.5-41.8 L MEAN CELL VOLUME (test code = MCV) 87.9 fL 84.6-96.6 N MEAN CELL HGB (test code = MCH) 28.7 pg 27.3-33.9 N MEAN CELL HGB CONCETRATION ( test code = MCHC) 32.6 gm/dL 32.0-34.2 N RED CELL DISTRIBUTION WIDTH (test code = RDW) 12.0 % 12.2-16.3 L PLATELET COUNT (test code = PLT) 196 K/mm3 134-363 N MEAN PLATELET VOLUME (test c ode = MPV) 11.4 fL 9.2-12.7 N NEUTROPHIL % (test code = NT%) 75.4 % 57.9-77.3 N LYMPHOCYTE % (test code = LY%) 13.0 % 14.5-29.7 L MONOCYTE % (test code = MO%) 8.9 % 3.6-10.2 N EOSINOPHIL % (test code = EO%) 1.1 % 0.0-3.0 N BASOPHIL % (test code = BA%) 0.2 % 0.1-0.9 N NEUTROPHIL # (test code = NT#) 6.4 K/mm3 LYMPHOCYTE # (test code = LY#) 1.1 K/mm3 MONOCYTE # (test code = MO#) 0.8 K/mm3 EOSINOPHIL # (test code = EO#) 0.09 K/mm3 BASOPHIL # (test code = BA#) 0.0 K/mm3 CBC W Auto Differential panel - [id number] 15:56:00* Test Item Value Reference Range Interpretation Comme nts white blood cell (test code = white blood cell) 8.5 K/mm3 6.5-12.3 red blood cell (test code = red blood cell) 3.63 M/mm3 3.51-4.69 hemoglobin (test code = hemoglobin) 10.4 g/dL 10.1-13.8 hematocrit (test code = hematocrit) 31.9 % 32.5-41.8 L mean cell volume (test code = mean cell volume) 87.9 fL 84.6-96.6 mean cell HGB (test code = m sergio cell HGB) 28.7 pg 27.3-33.9 mean cell HGB concetration ( test code = mean cell HGB concetration) 32.6 gm/dL 32.0-34.2 red cell distribution width (test code = red cell distribution width) 12.0 % 12.2-16.3 L platelet count (test code = platelet count) 196 K/mm3 134-363 mean platelet volume (test c ode = mean platelet volume) 11.4 fL 9.2-12.7 neutrophil % (test code = neutrophil %) 75.4 % 57.9-77.3 lymphocyte % (test code = lymphocyte %) 13.0 % 14.5-29.7 L monocyte % (test code = mono cyte %) 8.9 % 3.6-10.2 eosinophil % (test code = eosinophil %) 1.1 % 0.0-3.0 basophil % (test code = baso smita %) 0.2 % 0.1-0.9 neutrophil # (test code = neutrophil #) 6.4 K/mm3 lymphocyte # (test code = lymphocyte #) 1.1 K/mm3 monocyte # (test code = mono cyte #) 0.8 K/mm3 eosinophil # (test code = eosinophil #) 0.09 K/mm3 basophil # (test code = baso smita #) 0.0 K/mm3 performing lab: (test code = performing lab:) [facility]hori[facility]adotropin.beta subunit ( test) [Presence] in Serum or [id number] 15:56:00* Test Item Value Reference Range Interpretation Comme nts HCG serum (test code = HCG serum) 6615 performing lab: (test code = performing lab:) [facility] plasma [id number] 15:56:00* Test Item Value Reference Range Interpretation Comme nts rapid plasma reagin (test co de = rapid plasma reagin) non-reactive non-react performing lab: (test code = performing lab:) [facility] HIV 1 15:56:00* Test Item Value Reference Range Interpretation Comme nts Ab HIV 1 2 (test code = Ab H IV 1 2) nonreactive nonreactive performing lab: (test code = performing lab:) [facility]Glucose [Mass/volume] in Serum or Plasma --post 50 g glucose 2023-04-01 00:00:00* Test Item Value Reference Range Interpretation Comme nts glu.1HR(glucola)preg. (test code = glu.1HR(glucola)preg.) 127 mg/dL <130 [facility] panel - Blood by Automated [id number] 00:00:00* Test Item Value Reference Range Interpretation Comme nts WBC (test code = WBC) 9.6 10 3.7-12.0 RBC (test code = RBC) 3.90 10 3.60-5.50 HGB (test code = HGB) 11.3 g/dL 11.5-15.6 L HCT (test code = HCT) 33.6 % 34.5-46.5 L MCV (test code = MCV) 86.2 um 80.0-102.0 MCH (test code = MCH) 28.9 pg 25.0-34.1 MCHC (test code = MCHC) 33.5 g/dL 29.0-35.0 RDW (test code = RDW) 12.6 % 10.9-16.9 plt (test code = plt) 200 10 136-392 MPV (test code = MPV) 10.4 um 7.4-11.1 gran % (test code = gran %) 78.8 % 36.0-78.0 H lymph % (test code = lymph %) 12.8 % 12.0-48.0 mono % (test code = mono %) 6.3 % 0.0-13.0 eos % (test code = eos %) 1 % 0-8 baso % (test code = baso %) 1 % 0-2 gran # (test code = gran #) 7.6 10 1.2-6.8 H lymph # (test code = lymph #) 1.2 10 1.2-3.2 mono # (test code = mono #) 0.6 10 0.3-0.8 eos # (test code = eos #) 0.1 10 0.0-0.4 baso # (test code = baso #) 0.1 10 0.0-0.2 [facility] MedicalUrinalysis macro (dipstick) panel - [id number] 13:09:00* Test Item Value Reference Range Interpretation Comme nts Protein (test code = Protein) Negative Glucose (test code = Glucose) Normal [facility] [id number] 06:22:00* Test Item Value Reference Range Interpretation Comme nts HEMOGLOBIN (test code = HGB) 10.4 g/dL 10.7-13.9 L HEMATOCRIT (test code = HCT) 32.1 % 32.1-42.1 N CAPILLARY BLOOD [id number] 21:02:00* Test Item Value Reference Range Interpretation Comme nts CAPILLARY BLOOD GAS PH (test code = PHC) 7.273 7.35-7.45 L CAPILLARY BLOOD GAS PCO2 (te st code = PCO2C) 55.4 mmHg CAPILLARY BLOOD GAS PO2 (pebbles t code = PO2C) 12.3 mmHg CBG HCO3 (test code = HCO3C) 25.0 meq/L CBG BASE EXCESS (test code = BEC) -2.7 CAPILLARY BLOOD GAS TYPE (te st code = TYPEC) CBLA CAPILLARY BLOOD GAS FIO2 (te st code = FIO2C) 21.0 % AG HEPATITIS B [id number] 06:28:00* Test Item Value Reference Range Interpretation Comme nts AG HEPATITIS B SURFACE (test code = HBSAG) NONREACTIVE NONREACTIVE IS CONSENT FORM SIGNED FOR HIV TESTING? NAB HEPATITIS C [id number] 06:28:00* Test Item Value Reference Range Interpretation Comme nts AB HEPATITIS C (test code = HCVAB) NONREACTIVE NONREACTIVE SIGNAL TO CUTOFF (test code = CUTOFF) 0.25 <0.80 N IS CONSENT FORM SIGNED FOR HIV TESTING? NAB [id number] 06:28:00* Test Item Value Reference Range Interpretation Comme nts AB TREPONEMA (test code = TREPAB) NONREACTIVE NONREACTIVE IS CONSENT FORM SIGNED FOR HIV TESTING? NAB HIV 1 06:28:00* Test Item Value Reference Range Interpretation Comme nts AB HIV 1 2 (test code = INN03MN) NONREACTIVE NONREACTIVE Done by [employer] 4[employer] HIV Ag/Ab Combo Screen IS CONSENT FORM SIGNED FOR HIV TESTING? NAG HEPATITIS B [id number] 05:56:00* Test Item Value Reference Range Interpretation Comme nts AG HEPATITIS B SURFACE (test code = HBSAG) NONREACTIVE NONREACTIVE IS CONSENT FORM SIGNED FOR HIV TESTING? NAB HEPATITIS C [id number] 05:56:00* Test Item Value Reference Range Interpretation Comme nts AB HEPATITIS C (test code = HCVAB) NONREACTIVE SIGNAL TO CUTOFF (test code = CUTOFF) <0.80 IS CONSENT FORM SIGNED FOR HIV TESTING? NAB [id number] 05:56:00* Test Item Value Reference Range Interpretation Comme nts AB TREPONEMA (test code = TREPAB) NONREACTIVE NONREACTIVE IS CONSENT FORM SIGNED FOR HIV TESTING? NAB HIV 1 05:56:00* Test Item Value Reference Range Interpretation Comme nts AB HIV 1 2 (test code = PRM42SE) NONREACTIVE IS CONSENT FORM SIGNED FOR HIV TESTING? NCBC W/AUTO [id number] 05:12:00* Test Item Value Reference Range Interpretation Comme nts WHITE BLOOD CELL (test code = WBC) [...] pg 27-35 N MEAN CELL HGB CONCETRATION ( test code = MCHC) 33.0 gm/dL 32.2-34.1 N RED CELL DISTRIBUTION WIDTH (test code = RDW) 12.2 % 12.4-16.5 L PLATELET COUNT (test code = PLT) 239 K/mm3 133-385 N MEAN PLATELET VOLUME (test c ode = MPV) 12.3 fl 9.1-12.7 N NEUTROPHIL % (test code = NT%) 78.4 [...] = BA#) 0.0 K/mm3 RBC MORPHOLOGY REQUIRED (pebbles t code = RBCM) NORMAL NORMAL PLATELET MORPHOLOGY REQUIRED (test code = PLTMR) NORMAL NORMAL Notes Date/Time Note Provider Source 2023-07-17 12:17:00 [id number] [facility] [address], [place] [address] PATIENT NAME: MARGO DEE ADMIT DATE: 05/31/23 ACCOUNT NO: [id number] ROOM NO: 4424 AGE: 28 SEX: F ADMITTING PHYSICIAN: Adonis Jacobs MD ATTENDING PHYSICIAN: Adonis Jacobs MD ADMISSION DATE: 05/31/2023 09:51:00 DISCHARGE DATE: 06/02/2023 13:52:00 ADMISSION DIAGNOSES: 1. Term . 2. Previous section. PROCEDURE PERFORMED: Repeat low transverse delivery. DISPOSITION: The patient discharged home in good condition. DISCHARGE MEDICATIONS: Include Percocet, Motrin, vitamin. DISCHARGE EXAM: Benign with incision to be clean, dry, and intact. SUMMARY OF HOSPITAL COURSE: The patient presented at 39 weeks gestation for scheduled repeat as previously dictated. Postoperatively, the patient did well. She remained afebrile with stable vital signs throughout her hospital course. Hemoglobin and hematocrit were stable. She tolerated regular diet, ambulated without difficulty and had good pain control. By postoperative day #2, she was meeting all postoperative goals and was discharged home in good condition. DISCHARGE INSTRUCTIONS: Wound care instructions were discussed with the patient and family. She is scheduled for followup in the office in 2 weeks for incision check. Dictated By: Adonis Jacobs MD Date Dictated: 07/17/2023 12:17:17 Date Transcribed: 07/17/2023 12:20:57 S/MIGUEL Receipt ID: [id number] Authenticated by Adonis Jacobs MD On 07/17/2023 05:29:45 PM at 0529 PATIENT NAME: MARGO DEE [facility] 2023-06-13 11:20:00 [id number] [facility] [address], [place] [address] PATIENT NAME: MARGO DEE ADMIT DATE: 05/31/23 ACCOUNT NO: [id number] ROOM NO: 44 AGE: 28 SEX: F ADMITTING PHYSICIAN: Adonis Jacobs MD ATTENDING PHYSICIAN: Adonis Jacobs MD Provider Query QUERY TEXT: Condition OB Blood Loss 360MD Query related questions should be directed to:[facility] Coding Query Helpline Based on your clinical judgment, please clarify the condition(s) that represent(s) the clinical indicators listed below. The medical record reflects the diagnosis/procedure of [Insert diagnosis/procedure] and associated [Insert disease process, trauma or surgery]. [DELIVERY NOTE(s) and date05/31/23(s)]: The patient's Clinical Indicators include: 39 WEEKS GESTATION DELIVERED VIA C/S DELIVERY VITAMIN 1 TAB- MAR HEMATOCRIT (%) 28.5L HEMOGLOBIN (g/dL) 8.7L HEMATOCRIT (%) 33.4 HEMOGLOBIN (g/dL) 10.2 EBL at delivery (ml's): 750 Options provided: -- Acute hemorrhagic/blood loss anemia -- Chronic blood loss anemia -- Acute on chronic blood loss anemia -- Iron deficiency anemia -- Other deficiency anemia, Please specify type (e.g. vitamin, B12, folate, etc.) -- Inherited anemia, Please specify type (e.g. sickle cell, thalassemia, etc). -- Decreased hemoglobin and hematocrit values not diagnosed as anemia -- Dilutional -- Drug induced anemia, Please specify drug. -- Anemia due to other condition, Please specify condition. -- Anemia, unspecified -- Other - I will add my own diagnosis -- Dismiss - Not applicable / Not valid -- Dismiss - Clinically unable to determine / Unknown -- Assign to another provider QUERY RESPONSE: The patient has anemia due to acute hemorrhagic/blood loss. Query created by: Austin Sands on 06/05/2023 4:55 AM at 1120 PATIENT NAME: MARGO DEE [facility] 2023-06-01 07:46:00 [facility] ([facility]) OB Postpart Progr Note REPORT#:[id number] REPORT STATUS: Signed REPORT INITIALIZATION DATE:06/01/23 TIME: 745 PATIENT: MARGO DEE UNIT #: [id number] ROOM/BED: [address] : 95 AGE: 28 SEX: F ATTEND: Adonis Jacobs MD ADM AUTHOR: Adonis Jacobs MD REPT SERVICE DT/TIME: 06/01/23745 * ALL edits or amendments must be made on the electronic/computer document * Subjective Subjective Admission EGA: Weeks: 39 Days: 0 EGA at delivery (wks/days): 39 weeks Status/Day: post operative (d1) Patient reports: Patient reports: Yes no complaints, Yes pain management effective, Yes tolerating po well Objective Nursing Documentation Review Nursing Data: The data set between the solid lines has been imported from nursing documentation. Any exceptions have been noted below under Provider comments. Feeding preference: Post hemorrhage risk score: HighRisk Provider comments on imported nursing data: [] General VS: Vital Signs: Date Time Temp Pulse Resp B/P B/P Pulse O2 O2 Flow FiO2 Mean Ox Delivery Rate 05/31 0450 90.0 05/31 0450 98.6 72 18 122/74 96 05/31 0136 90.0 05/31 0136 98.4 81 18 118/76 97 05/30 2026 95.0 05/30 2025 98.4 80 18 130/77 95 05/30 1515 90.0 05/30 1515 74 20 148/63 97 05/30 1500 90.0 05/30 1500 69 41 123/66 99 05/30 1445 85.0 05/30 1445 84 46 123/58 98 05/30 1430 89.0 05/30 1430 78 12 133/62 97 05/30 1415 89.0 05/30 1415 74 23 137/62 98 05/30 1400 95.0 05/30 1400 77 18 133/66 98 05/30 1345 94.0 05/30 1345 82 34 125/75 98 05/30 1330 86.0 05/30 1330 89 19 116/66 99 05/30 1323 97.4 16 05/30 1323 97.0 05/30 1323 131/77 05/30 1054 98.3 90 16 05/30 1021 93.0 05/30 1021 90 118/77 PATIENT WEIGHT: Weight (lb): 202 Weight (oz): Weight (kg): 91.800 Physical Exam Neuro: Exam: alert, oriented x3 Abdomen: soft, no abnormal tenderness Incision site: well approximated edges, dry, no drainage Uterus: firm, non-tender Result Findings/Data: Laboratory Tests: 05/31 0531 Hematology Hgb (10.1 - 13.8 g/dL) 8.7 L Hct (32.5 - 41.8 %) 28.5 L Diagnosis, Assessment Plan Diagnosis, Assessment Plan Assessment: nml progress Plan: routine care, circumcision tomorrow, discharge tomorrow at 0746 RPT #:[id number] END OF REPORT [facility] 2023-06-01 07:44:00 [id number] [facility] [address] [address] PATIENT NAME: MARGO DEE ADMIT DATE: 05/31/23 ACCOUNT NO: [id number] ROOM NO: .4424 AGE: 28 SEX: F ADMITTING PHYSICIAN: Adonis Jacobs MD ATTENDING PHYSICIAN: Adonis Jacobs MD OPERATION DATE: 05/31/2023 PREOPERATIVE DIAGNOSES: 1. 39-week . 2. Previous section. POSTOPERATIVE DIAGNOSES: 1. 39-week . 2. Previous section. PROCEDURE: Repeat low transverse delivery. SURGEON: Adonis Jacobs M.D. ATTENDANCE OFFICER: New Paulino M.D. ANESTHESIA: Combined spinal epidural. ESTIMATED BLOOD LOSS: 750 mL. COMPLICATIONS: None. PATHOLOGY: None. OPERATIVE FINDINGS: 1. Normal-appearing uterus, ovaries, and tubes. 2. Cephalic male infant, Apgars 8 and 8, weight 8 pounds 12 ounces. 3. Hemostatic. 4. All counts correct. DISPOSITION: PACU in good condition. STATEMENT OF MEDICAL NECESSITY: The patient presented at 39 weeks' gestation for scheduled repeat . Risks, benefits, alternatives, and indications of repeat were discussed with the patient and family, they agreed to the plan. PROCEDURE IN DETAIL: After informed consent was obtained, the patient was taken to the operating room. Adequate spinal epidural anesthesia was established. She was prepped and draped in the usual sterile fashion. Transverse skin incision was made through the previous scar, and this was carried down to the fascia. Fascia was scored in midline. Fascial incision was extended bilaterally. Muscle was dissected off the back of fascia and in PATIENT NAME: MARGO DEE midline. Peritoneal cavity was bluntly entered. Bladder flap was created below the vesicouterine peritoneal reflection. Low transverse hysterotomy was made, this was bluntly extended bilaterally. Membranes were bluntly ruptured with clear fluid return. head was elevated to the hysterotomy. With fundal pressure, head and body were delivered. Mouth and nares were bulb suctioned. Cord was doubly clamped and cut and fetus passed off for evaluation. Placenta was delivered with fundal massage. Uterus was exteriorized, wrapped in moist laparotomy sponge, curettaged with dry laparotomy sponge. Hysterotomy was closed with #1 chromic suture in a running locked fashion. Small areas of bleeding were oversewn with [id number] sutures of 2-0 Monocryl. Hysterotomy was inspected and remained hemostatic. There was small area at the dome of the bladder with partial thickness, separation of the bladder without injury into the bladder. This was reapproximated using a 3-0 Vicryl suture. With reapproximation, good hemostasis noted. Uterus returned to the abdominal cavity. Gutters were copiously irrigated. Uterus returned to abdominal cavity. Gutters were wiped clean. Hysterotomy was again inspected and found to be hemostatic. Peritoneum was reapproximated with 2-0 chromic suture. Muscles were reapproximated with 2-0 chromic suture. Fascia was closed with 0 Vicryl from either side and tied in the midline. Subcutaneous tissue was copiously irrigated and suctioned dry, it was reapproximated with plain gut suture. Skin was closed with a 3-0 Monocryl running subcuticular stitch. Wound was dressed with Mastisol, Steri-Strips, and occlusive bandage. Blood and clot evacuated from the uterus and vagina. The patient was taken to recovery room in good condition. Dictated By: Adonis Jacobs MD Date Dictated: 06/01/2023 07:44:35 Date Transcribed: 06/01/2023 08:43:27 S/SHE Receipt ID: [id number] Authenticated by Adonis Jacobs MD On 06/12/2023 10:09:04 PM at 1009 PATIENT NAME: MARGO DEE [facility] 2023-05-31 13:07:00 [facility] ([facility]) OB Delivery Note REPORT#:[id number] REPORT STATUS: Signed REPORT INITIALIZATION DATE:05/31/23 TIME: 1306 PATIENT: MARGO DEE UNIT #: [id number] ROOM/BED: LDOR6-A : 95 AGE: 28 SEX: F ATTEND: Adonis Jacobs MD ADM AUTHOR: Adonis Jacobs MD REPT SERVICE DT/TIME: 05/31/23 1307 * ALL edits or amendments must be made on the electronic/computer document * OB Delivery Nursing Documentation Review Nursing data: The data set between the solid lines has been imported from nursing documentation. Any exceptions have been noted below under Provider comments. _ ROM date: 05/31/23 ROM time: 1233 Membranes rupture method: AROM Amniotic fluid color: Clear Amniotic fluid amount: Steroids prior to arrival: Antibiotic prophylaxis given: Yes Post hemorrhage risk score: LowRisk Delivery date infant A: 05/31/23 Delivery time infant A: 1235 Birthweight (gm) A: Weight (lb) infant A: Weight (oz) infant A: Gender infant A: Male 1 minute infant A: 8 5 minutes A: 8 10 minutes infant A: Cord pH obtained A: Vacuum time infant A: Vacuum # pulls A: Vacuum # popoffs infant A: QBL at delivery: __ Provider comments on imported nursing data: [] Pre-delivery GBS status: GBS status: negative Weir evaluation at delivery: NRP certified personnel Admission EGA: Weeks: 39 Days: 0 EGA at delivery (wks/days): 39 weeks Admission indication: sched C/S Blood Loss/Details Blood loss at delivery: <1K: no sx hypovol=no hem, no more than expected EBL at delivery (ml's): 750 Baby A Information Baby A information Delivery date: 05/31/23 Delivery time: 1235 status: live born Wt of baby (lbs/oz): 09/24 Gender: male 1 minute: 8 5 minutes: 8 Presentation: vertex Nuchal cord Baby A Nuchal cord: no Op/Inv Proc Note - Brief )( Procedure(s) performed: repeat low transverse c/s )( Primary Surgeon: Chandana Jacobs )( High Heel Builder(s): Brandon Miranda )( Pre-procedure diagnosis: prev C/S )( Post-procedure diagnosis: same )( Technique/Procedure: LTCS Anesthesia: combined spinal/epidural )( Estimated blood loss (ml): 750 )( Specimen removed/altered: none )( Complications: none )( Finding(s): nl ut/ov/tubes. hemostatic. counts correct. Condition: stable Delivery Delivery section indication: elective repeat Priority: scheduled : : declined Antibiotic prior to incision: 1 dose )(SCDs applied activated: Yes Uterine incision: low transverse Uterine scar: intact Consent: indication discussed, questions answered, pt consent to op delivery Mother's condition: mother stable Infant's condition: infant stable in room at 1310 RPT #:[id number] END OF REPORT [facility] 2023-05-31 11:53:00 [facility] ([facility]) OB Admission / H P REPORT#:[id number] REPORT STATUS: Signed REPORT INITIALIZATION DATE:05/31/23 TIME: 115 PATIENT: MARGO DEE UNIT #: [id number] ROOM/BED: [address] : 95 AGE: 28 SEX: F ATTEND: Adonis Jacobs MD ADM AUTHOR: Adonis Jacobs MD REPT SERVICE DT/TIME: 05/31/23 1153 * ALL edits or amendments must be made on the electronic/computer document * OB History Chief complaint: scheduled history: : 2 Term: 1 Previous : low uterine trans incis Current : Admission EGA (weeks) 39 Admission EGA (days) 0 Conditions of : previous uterine incision Labs: Blood type: O Rh: negative Rubella: immune Hepatitis B: negative HIV: negative STD: negative Syphilis: currently negative GBS: negative Procedures: ultrasound, genetic testing Past History Additional Medical History: denies Past Surgical History: Reports: Cholecystectomy, . Additional Surgical History: back Smoking status for patients 13 years old or older: Never Smoker Allergies: Coded Allergies: No Known Allergies (05/21/19) Objective General VS: Last Documented: Result Date Time Temp 98.3 05/30 1054 Pulse 90 05/30 1054 Resp 16 05/30 1054 B/P Mean 93.0 05/30 1021 B/P 118/77 05/30 1021 Vital Signs Date Temp Pulse Resp B/P B/P Mean Pulse Ox FiO2 05/30 98.3 90 16 118/77 93.0 PATIENT WEIGHT: Weight (lb): 202 Weight (oz): Weight (kg): 91.800 Physical Exam HEENT: normocephalic w/o injury Neuro: Exam: alert, oriented x3 Abdomen: gravid, soft Uterine activity: Monitor: toco Frequency (description): none Cervical/ exam: Dilatation (cm): 0 - closed Effacement (%): 0 Est wt (gms): 3400 Suspected macrosomia: No Suspected >/= 4500 grams No Suspected >/= 5000 grams: No station: - 3 Membranes: Membranes: Intact Baby A: Baby A baseline: 135 bpm Baby A variability: moderate 6-25 bpm Baby A accelerations: 15 X 15 Diagnosis, Assessment Plan Diagnosis, Assessment Plan Assessment/Impression: previous C/S, for repeat Plan: scheduled Reason-sched C section: elective repeat at 1155 RPT #:[id number] [facility] OF [facility] 2019-07[facility] 06:56:00 [id number] [address] PATIENT NAME: MARGO WOODRUFF ADMIT DATE: 05/21/19 ACCOUNT NO: [id number] ROOM NO: [facility] AGE: 24 SEX: F ADMITTING PHYSICIAN: Adonis Jacobs MD ATTENDING PHYSICIAN: Adonis Jacobs MD ADMISSION DATE: 05/21/2019 DISCHARGE DATE: 05/24/2019 ADMISSION DIAGNOSES: 1. A 39-week . 2. Rupture of membranes. 3. Labor. 4.: Nonreassuring heart rate tracing, prolonged labor. PROCEDURE PERFORMED: Primary low transverse delivery. DISPOSITION: The patient discharged home in good condition. DISCHARGE INSTRUCTIONS: Wound care instructions were discussed with the patient and family. DISCHARGE EXAM: Benign with incision noted to be clean, dry, and intact. DISCHARGE MEDICATIONS: Include [place], Motrin, and multivitamin. SUMMARY OF HOSPITAL COURSE: The patient presented at 39 weeks' gestation with rupture of membranes and in labor. She progressed to 9 cm; however, developed nonreassuring heart rate tracing and prolonged labor course not progressed past 9 cm and she underwent primary as postop as previously dictated. Postoperatively, the patient did well. Drain afebrile with stable vital signs throughout her hospital course. Hemoglobin and hematocrit were stable. She had adequate pain control and tolerated regular diet. On postoperative day #1, she ambulated without difficulty and by postoperative day #3, was meeting all postoperative goals. She was discharged home in good condition. She was scheduled for followup in the office in 2 weeks for incision check. Dictated By: Adonis Jacobs MD WT: DS:F.FARSHAD/SHARLA/DACIA Conf#: [id number]/DID#: [id number] Authenticated by Adonis Jacobs MD On 07/15/2019 07:57:20 AM PATIENT NAME: MARGO WOODRUFF at 0757 PATIENT NAME: LISSYMARGO DA SILVA [facility] 2019-07-13 06:55:00 [id number] [facility] [address], [place] [address] PATIENT NAME: YATAMRASupriyaMARGO ADMIT DATE: 05/21/19 ACCOUNT NO: [id number] ROOM NO: [facility] AGE: 24 SEX: F ADMITTING PHYSICIAN: Adonis Jacobs MD ATTENDING PHYSICIAN: Adonis Jacobs MD OPERATION DATE: 05/21/2019 SURGEON: Adonis Jacobs MD ATTENDANCE OFFICER: Bharat Montes SA PROCEDURE PERFORMED: Primary low transverse delivery. PREOPERATIVE DIAGNOSES: 1. A 39-week . 2. Labor. 3. Prolonged labor course. 4. Non-reassuring heart rate tracing. POSTOPERATIVE DIAGNOSES: ANESTHESIA: Epidural. ESTIMATED BLOOD LOSS: 700 mL. COMPLICATIONS: None. PATHOLOGY: None. OPERATIVE FINDINGS: 1. Normal-appearing uterus, ovaries, and tubes. 2. Cephalic female , Apgars 6, 7 and 9, weight 3280 grams. 3. Hemostatic. 4. All counts correct. STATEMENT OF MEDICAL NECESSITY: The patient is a primiparous female at 39 plus weeks' gestation, who presented in labor with ruptured membranes. She progressed to 9 cm; however, had very slow labor course and began having tachycardia with decelerations and overshoot of baseline and not progressed past 9 cm. Risks, benefits, alternatives, and indications of primary were discussed with the patient and family and they agreed to plan. STATEMENT OF PROCEDURE: After informed consent was obtained, the patient was taken to the operating room. Her epidural was dosed for anesthesia. She was prepped and draped in usual sterile fashion. Transverse skin incision was made, this was carried down to the fascia. Fascia was scored in midline. Fascial incision was extended bilaterally. Muscle was dissected off back of the fascia and in midline. Peritoneal cavity was bluntly entered. Bladder flap PATIENT NAME: MARGO WOODRUFF was created below the vesicouterine peritoneal reflection. Low transverse hysterotomy was made, this was bluntly extended bilaterally. head was brought to hysterotomy. With fundal pressure, head and body were delivered. Mouth and nares were bulb suctioned. Cord was doubly clamped and cut and fetus passed off for evaluation. Placenta was delivered with fundal massage. Uterus was exteriorized, wrapped in moist laparotomy sponge and curettaged with dry laparotomy sponge. Hysterotomy was closed with #1 chromic suture in running-locked fashion. It was irrigated and rendered hemostatic. Secondary layer closure performed with 2-0 Monocryl in imbricating fashion. This too was irrigated and rendered hemostatic. Uterus was returned to abdominal cavity. Gutters were copiously irrigated and suctioned dry. Hysterotomy was again inspected and remained hemostatic. Peritoneum was reapproximated with 2-0 chromic suture. Muscles were reapproximated with 2-0 chromic suture. Fascia was closed with 0 Vicryl from either side and tied in the midline. Subcutaneous tissue was copiously irrigated and suctioned dry. It was reapproximated with plain gut suture. Skin was closed with 3-0 Monocryl running subcuticular stitch. Wound was dressed with Mastisol, Steri-Strips, and occlusive bandage. Blood and clot were evacuated from the uterus and vagina. The patient was taken to the recovery room in good condition. There were no operative or anesthetic complications. Dictated By: Adonis Jacobs MD WT: OP:F.FARSHAD/SHARLA/NTS Conf#: [id number]#: [id number] Authenticated by Adonis Jacobs MD On 07/15/2019 07:57:19 AM at 0757 PATIENT NAME: MARGO WOODRUFF [facility] 2019-05-24 09:20:00 [facility] [place] [facility] ([facility]) OB Postpart Progr Note REPORT#:[id number] REPORT STATUS: Signed DATE:05/24/19 TIME: 919 PATIENT: MARGO WOODRUFF UNIT #: [id number] ROOM/BED: [address] : 95 AGE: 24 SEX: F ATTEND: Adonis Jacobs MD ADM AUTHOR: Ubaldo Mandel MD * ALL edits or amendments must be made on the electronic/computer document * Subjective Subjective Admission EGA (wks/days): 39 weeks (6d) Status/day: post operative (day 3) Patient reports: Patient reports: Yes: normal lochia, pain management effective, tolerating po well, voiding well, voiding without pain, tolerating ambulation, flatus. No: complaints, bowel movement. Objective Nursing Documentation Review Nursing data: The data set between the solid lines has been imported from nursing documentation. Any exceptions have been noted below under Provider comments. Feeding preference: Provider comments on imported nursing data: [] General VS: Vital Signs Date Temp Pulse Resp B/P B/P Mean Pulse Ox FiO2 05/22 36.7 80 18 Last Documented: Result Date Time B/P 05/22 1732 Temp 36.7 05/22 1732 Pulse 80 / 1732 Resp 18 05/22 1732 B/P Mean 86.5 05/21 0350 Pulse Ox 98 05/20 2349 Patient Weight Weight (lb): Weight (oz): Weight (kg): 78.018 Physical Exam Lungs: unlabored breathing Neuro: Exam: alert, oriented x3 Abdomen: soft, no abnormal tenderness Incision site: well approximated edges, no drainage, no inflammation Fundus: firm, at the umbilicus Lochia: normal Lower extremities: Edema: trace Calf tenderness: negative Diagnosis, Assessment Plan Diagnosis, Assessment Plan Assessment: nml progress Plan: routine care, discharge today at 0921 RPT #:[id number] END OF REPORT [facility] 2019-05-23 08:45:00 [facility] OB Postpart Progr Note REPORT#:[id number] REPORT STATUS: Signed DATE:05/23/19 TIME: 0845 PATIENT: MARGO WOODRUFF UNIT #: [id number] ROOM/BED: 0-A : 95 AGE: 24 SEX: F ATTEND: Adonis Jacobs MD ADM AUTHOR: Adonis Jacobs MD * ALL edits or amendments must be made on the electronic/computer document * Subjective Subjective Status/Day: post operative (d2) Patient reports: Patient reports: Yes no complaints, Yes pain management effective, Yes tolerating po well Objective Nursing Documentation Review Nursing Data: The data set between the solid lines has been imported from nursing documentation. Any exceptions have been noted below under Provider comments. Feeding preference: Provider comments on imported nursing data: [] General VS: Vital Signs: Date Time Temp Pulse Resp B/P B/P Pulse O2 O2 Flow FiO2 Mean Ox Delivery Rate 05/22 0434 98.5 84 18 111/66 05/22 0028 98.3 94 18 111/69 05/21 1932 98.3 102 18 124/71 05/21 1615 98.3 79 18 113/73 05/21 1235 98.0 79 18 112/71 Patient Weight Weight (lb): Weight (oz): Weight (kg): 78.018 Physical Exam Neuro: Exam: alert, oriented x3 Abdomen: soft, no abnormal tenderness Incision site: well approximated edges, dry, no drainage, no inflammation Uterus: firm, non-tender Fundus: firm, below the umbilicus Diagnosis, Assessment Plan Diagnosis, Assessment Plan Assessment: nml progress Plan: routine care, discharge tomorrow Consultation(s): Consultation performed: anesthesia Reason for consultation: desires epidural and hx of spinal surgery for scoliosis at 0846 RPT #:[id number] END OF REPORT [facility] 2019-05-22 12:43:00 [facility] [place] ([facility]) OB Postpart Progr Note REPORT#:[id number] REPORT STATUS: Signed DATE:05/22/19 TIME: 1243 PATIENT: MARGO WOODRUFF UNIT #: [id number] ROOM/BED: [address] : 95 AGE: 24 SEX: F ATTEND: Adonis Jacobs MD ADM AUTHOR: Adonis Jacobs MD * ALL edits or amendments must be made on the electronic/computer document * Subjective Subjective Status/Day: post operative (d1) Patient reports: Patient reports: Yes no complaints, Yes pain management effective, Yes tolerating po well Objective Nursing Documentation Review Nursing Data: The data set between the solid lines has been imported from nursing documentation. Any exceptions have been noted below under Provider comments. Feeding preference: Provider comments on imported nursing data: [] General VS: Vital Signs: Date Time Temp Pulse Resp B/P B/P Pulse O2 O2 Flow FiO2 Mean Ox Delivery Rate 05/21 1235 98.0 79 18 112/71 04/08 0845 97.6 76 18 114/72 04/08 0350 98.4 81 18 118/71 04/08 0350 98.4 81 18 118/71 86.5 04/08 0040 99.2 80 123/77 04/07 2349 96.0 04/07 2349 96.0 04/07 2349 89 129/79 98 04/07 2349 89 129/79 98 04/07 2344 77 96 04/07 2344 77 96 04/07 2339 84 97 04/07 2339 84 97 04/07 2334 99.0 04/07 2334 95.0 04/07 2334 95.0 04/07 2334 83 124/80 98 04/07 2334 83 124/80 98 04/07 2329 76 97 04/07 2329 76 97 04/07 2324 83 98 04/07 2324 83 98 04/07 2319 99.0 04/07 2319 95.0 04/07 2319 95.0 04/07 2319 82 126/78 97 04/07 2319 82 126/78 97 04/07 2314 83 97 04/07 2314 83 97 04/07 2309 82 97 04/07 2309 82 97 04/07 2304 98.0 04/07 2304 98.0 04/07 2304 85 132/83 98 04/07 2304 85 132/83 98 04/07 2259 82 97 04/07 2254 82 97 04/07 2249 99.0 04/07 2249 84 125/84 97 04/07 2244 86 97 04/07 2239 85 97 04/07 2234 104.0 04/07 2234 89 133/84 97 04/07 2229 97 97 04/07 2224 84 98 04/07 2219 103.0 04/07 2219 80 137/81 97 04/07 2214 84 98 04/07 9 91 97 04/07 4 94.0 04/07 2203 98.3 103 133/69 98 /07 2158 96 98 04/07 2153 101 99 04/07 2148 99.0 04/07 2148 98 133/75 98 04/07 2143 115 97 04/07 2138 114 100 04/07 2134 91.0 04/07 2134 117 142/63 04/07 2133 115 93 04/2002 83.0 04/07 2002 92 121/58 04/07 1949 83.0 04/07 1949 109 125/58 04/07 1933 92.0 04/07 1933 107 132/69 04/07 1905 100.2 04/07 1903 91.0 04/07 1903 97 125/67 04/07 1848 88.0 04/07 1848 91 119/69 04/07 1834 77.0 04/07 1834 89 112/60 04/07 1818 90.0 04/07 1818 102 126/69 04/07 1805 79.0 04/07 1805 88 109/62 04/07 1748 86.0 04/07 1748 88 119/66 04/07 1733 93.0 04/07 1733 91 130/69 04/07 1718 102.0 04/07 1718 98 130/82 04/07 1703 103.0 04/07 1703 96 131/84 04/07 1700 98.6 04/07 1648 86.0 04/07 1648 98 118/65 Patient Weight Weight (lb): Weight (oz): Weight (kg): 78.018 Physical Exam Neuro: Exam: alert, oriented x3 Abdomen: soft, no abnormal tenderness Incision site: well approximated edges, dry, no drainage, no inflammation Uterus: firm, non-tender Fundus: firm, below the umbilicus Result Findings/Data: Laboratory Tests: 05/21 05/20 0552 2055 Blood Gas Capillary pH (7.35 - 7.45) 7.273 L Capillary pCO2 (mmHg) 55.4 Capillary pO2 (mmHg) 12.3 Capillary HCO3 (meq/L) 25.0 Capillary Base Excess -2.7 Patient On Oxygen CBLA FiO2 (%) 21.0 Hematology Hgb (10.7 - 13.9 g/dL) 10.4 L Hct (32.1 - 42.1 %) 32.1 Diagnosis, Assessment Plan Diagnosis, Assessment Plan Assessment: nml progress Plan: routine care at 1634 RPT #:[id number] END OF REPORT [facility] 2019-05-21 20:24:00 [facility] [place] ([facility]) OB Delivery Note REPORT#:[id number] REPORT STATUS: Signed DATE:05/21/19 TIME: 2023 PATIENT: MARGO WOODRUFF UNIT #: [id number] ROOM/BED: [address] : 95 AGE: 24 SEX: F ATTEND: Adonis Jacobs MD ADM AUTHOR: Adonis Jacobs MD * ALL edits or amendments must be made on the electronic/computer document * OB Delivery Nursing Documentation Review Nursing data: The data set between the solid lines has been imported from nursing documentation. Any exceptions have been noted below under Provider comments. _ ROM date: 05/21/19 ROM time: 0110 Membranes rupture method: SROM Amniotic fluid color: Clear Amniotic fluid amount: EGA (weeks/days): 39.6 EGA at admit (weeks): EGA at delivery (weeks): Steroids prior to arrival: Antibiotic prophylaxis given: Weir evaluation at delivery: Delivery date A: Delivery time A: Birthweight (gm) infant A: Weight (lb) A: Weight (oz) A: Gender infant A: Female 1 minute A: 5 minutes infant A: 10 minutes infant A: Cord pH obtained infant A: Vacuum time A: Vacuum # pulls infant A: Vacuum # popoffs A: QBL at delivery: __ Provider comments on imported nursing data: [] Pre-delivery Admission EGA (wks/days): 39 weeks (6d) Steroids Prior to Delivery Steroids prior to delivery: no, delivery on arrival Baby A Information Baby A information Delivery date: 05/21/19 Delivery time: 2044 status: live born Wt of baby (grams): 3280 Gender: female 1 minute: 6 5 minutes: 7 10 minutes: 9 Presentation: vertex Delivery section Primary indication: persistent category 2 Op/Inv Proc Note - Brief )( Procedure(s) performed: prim low transverse c/s )( Primary Surgeon: Chandana Jacobs )( High Heel Builder(s): Luciano Montes )( Pre-procedure diagnosis: 39 wks, primip, labor/ROM, prolonged labor, NRFHRT )( Post-procedure diagnosis: same )( Technique/Procedure: LTCS )( Estimated blood loss (ml): 700 )( Specimen removed/altered: none )( Complications: none )( Finding(s): nl ut/ov/tubes. hemostatic. counts correct. Blood Loss/Details Blood loss at delivery: <1000 ml EBL at delivery (ml's): 600 at 2114 RPT #:[id number] END OF REPORT [facility] 2019-05-21 19:55:00 [facility] ([facility]) Clinical Note REPORT#:[id number] REPORT STATUS: Signed DATE:05/21/19 TIME: 1954 PATIENT: MARGO WOODRUFF UNIT #: [id number] ROOM/BED: [address] : 95 AGE: 24 SEX: F ATTEND: Adonis Jacobs MD ADM AUTHOR: Adonis Jacobs MD * ALL edits or amendments must be made on the electronic/computer document * Clinical Note Note: FHT with prolonged decel followed by overshoot/tachycardia, now returned to baseline but with some decreased BTBV. cvx 9cm. options d/w pt/, prefer to proceed with C/S given concerns with FHT and prolonged labor course. at 1956 RPT #:[id number] END OF REPORT [facility] 2019-05-21 15:36:00 [facility] [place] ([facility]) Clinical Note REPORT#:[id number] REPORT STATUS: Signed DATE:05/21/19 TIME: 1536 PATIENT: MARGO WOODRUFF UNIT #: [id number] ROOM/BED: : 95 AGE: 24 SEX: F ATTEND: Adonis Jacobs MD ADM AUTHOR: Adonis Jacobs MD * ALL edits or amendments must be made on the electronic/computer document * Clinical Note Note: cvx 6-7/C/-1. forebag ruptured clear. FHT 130s, Cat I. toco q2 min. cont pit, antic . at 1537 RPT #:[id number] END OF REPORT [facility] 2019-05-21 08:03:00 [facility] [place] [facility] ([facility]) Clinical Note REPORT#:[id number] REPORT STATUS: Signed DATE:05/21/19 TIME: 08 PATIENT: MARGO WOODRUFF UNIT #: [id number] ROOM/BED: A : 95 AGE: 24 SEX: F ATTEND: Adonis Jacobs MD ADM AUTHOR: Adonis Jacobs MD * ALL edits or amendments must be made on the electronic/computer document * Clinical Note Note: cvx 2/C/-1, ROM clear. FHt 130s, Cat I. toco q3 min. eval for epidural. antic . at 0804 RPT #:[id number] END OF REPORT [facility] 2019-05-21 04:55:00 [facility] ([facility]) OB Admission / H P REPORT#:[id number] REPORT STATUS: Signed DATE:05/21/19 TIME: 0455 PATIENT: MARGO WOODRUFF UNIT #: [id number] ROOM/BED: [address] : 95 AGE: 24 SEX: F ATTEND: Adonis Jacobs MD ADM AUTHOR: Tania Durbin MD * ALL edits or amendments must be made on the electronic/computer document * OB Admission H P Hx Chief complaint: suspected ruptured memb HPI: 24 y/o G1 @ 39w6d presenting to [facility] with complaints of LOF since 0. Reports intermittent painful ctx, passage of bloody mucous plug and +FM. SVE /-3 on admission and confirmed ROM. history: : 1 Term: 0 : 0 Abortus: 0 Living children: 0 Complications (prev preg): none Previous : none Current : LMP: 08/15/18 EDC: 05/22/19 Admission EGA (wks/days): 39 weeks (6d) EGA based on: LMP Steroids prior to delivery: no, delivery on arrival Labs: Blood type: O Rh: negative Rubella: immune Hepatitis B: negative HIV: negative STD: negative Syphilis: currently negative GBS: negative Date Rhogam administered: 03/01/2019 Procedures: ultrasound, genetic testing Genetic testing: NIPT low risk, AFP neg Past medical history: denies PMH Past surgical history: cholecystectomy (lap), spinal fusion for scoliosis Social history: no alcohol use, no tobacco use, no drug use Medications: Home Medications: [VITAFOL-ONE CAP] Allergies Coded Allergies: No Known Allergies (05/21/19) Objective General VS: Last Documented: Result Date Time Temp 98.3 05/20 0404 B/P Mean 97.0 05/20 0403 B/P 123/84 05/20 0403 Pulse 76 05/20 0403 Resp 18 05/20 0246 Vital Signs Date Temp Pulse Resp B/P B/P Mean Pulse Ox FiO2 05/20 98.2-98.3 76-100 18 116-123/71-84 89.0-97.0 Patient Weight Weight (lb): Weight (oz): Weight (kg): 78.018 Physical Exam HEENT: normocephalic w/o injury Lungs: unlabored breathing Breasts: deferred Neuro: Exam: alert, oriented x3 Abdomen: gravid, soft, no abnormal tenderness, no guarding, no rebound tenderness Uterine activity: Monitor: toco Frequency (description): irregular Frequency (minutes): 3 Intensity: moderate Resting tone: relaxed Tachysystole: No Pelvic exam: Pelvis clinically adequate: yes Vulvar lesions: none Vagina: normal Uterus size in weeks: 39 Exam: soft, non-tender, approp size for gest age Cervical/ exam: Dilatation (cm): 2 Effacement (%): 70 Suspected macrosomia: No Suspected > 5000 grams: No station: - 3 presentation: cephalic Membranes: Membranes: SROM ROM date: 05/21/19 ROM time: 0110 Amniotic fluid: clear Odor: none Lower extremities: Edema: trace Calf tenderness: negative Baby A: Baby A baseline: 130 bpm Baby A variability: moderate 6-25 bpm Baby A accelerations: 15 X 15 Baby A decelerations: none Baby A FHR category: category 1 Result Findings/Data: Laboratory Tests: 05/20 043 Hematology WBC (6.6 - 12.1 K/mm3) 11.9 RBC (3.45 - 5.01 M/mm3) 4.06 Hgb (10.7 - 13.9 g/dL) 11.5 Hct (32.1 - 42.1 %) 34.9 MCV (84.1 - 94.8 fL) 86 MCH (27 - 35 pg) 28.3 MCHC (32.2 - 34.1 gm/dL) 33.0 RDW (12.4 - 16.5 %) 12.2 L Plt Count (133 - 385 K/mm3) 239 MPV (9.1 - 12.7 fl) 12.3 Neut % (Auto) (56.5 - 79.4 %) 78.4 Lymph % (Auto) (14.3 - 34.3 %) 11.7 L [place] % (Auto) (5.1 - 10.4 %) 8.0 Eos % (Auto) (0.1 - 3.0 %) 0.8 Baso % (Auto) (0.1 - 1.0 %) 0.3 Neut # (Auto) (K/mm3) 9.3 Lymph # (Auto) (K/mm3) 1.4 [place] # (Auto) (K/mm3) 1.0 Eos # (Auto) (K/mm3) 0.10 Baso # (Auto) (K/mm3) 0.0 Results: labs reviewed, vital signs stable ROM test: positive Nitrazine: positive Pooling: positive Diagnosis, Assessment Plan Diagnosis, Assessment Plan Assessment/Impression: spont.active labor>39 wks, PROM 39 plus weeks, reassuring status Plan: transfer to [facility], augment with pitocin PRN, epidural PRN (early anesthesia consult due to hx of back surgery) Consultation(s): Consultation performed: anesthesia Reason for consultation: desires epidural and hx of spinal surgery for scoliosis Plan discussed with: patient at 0531 RPT #:[id number] END OF REPORT [facility]
--- NOTE | 2024-06-11 22:35 | RAD REPORT ---
EXAM: Chest Single View HISTORY: 29 years Female CHEST PAIN COMPARISON: None. FINDINGS: LUNGS/PLEURA: The lungs are clear. No pleural effusions or pneumothorax. No pulmonary edema. CARDIAC/MEDIASTINUM: The cardiac silhouette is within normal limits. UPPER ABDOMEN: No significant abnormality. BONES: No acute abnormality. Gomez rods present in the spine. LINES/TUBES/OTHER: N/A IMPRESSION: No evidence of acute cardiopulmonary disease.
--- NOTE | 2024-06-11 22:49 | RAD REPORT ---
EXAMINATION: Head Brain Wo Cont CLINICAL INDICATION: Female, 29 years old.HEADACHE TECHNIQUE: Axial CT images from the skull base to the vertex without intravenous contrast. Coronal an d sagittal reformatted images were created from the data set. One or more of the following dose reduction techniques were used: Automated exposure control, adjustment of the mA and/or kV according to patient size, and/or iterative reconstruction. Unless otherwise specified, incidental findings do not require dedicated imaging follow-up. [id number]. COMPARISON: No prior exam. FINDINGS: INTRACRANIAL: No acute intracranial hemorrhage. No hydrocephalus. No mass effect or midline shift. No significant white matter disease. VASCULATURE: No visualized abnormalities in the arteries or dural venous sinuses. SCALP/SKULL: No calvarial fracture identified. No acute soft tissue abnormality. SINUSES: The visualized paranasal sinuses are mostly clear. No significant mastoid fluid. IMPRESSION: No acute intracranial abnormality.
[2024-06-11] MEDS ORDERED: NA CHLORIDE 0.9% 1,000 ML ONE (23:59)
[2024-06-11] MEDS ORDERED: DIPHENHYDRAMINE 50 MG/ML VIAL ONE (23:59)
[2024-06-11] MEDS ORDERED: METOCLOPRAMIDE 10 MG/2mL INJ ONE (23:59)
[2024-06-11] MEDS ORDERED: NA CHLORIDE 0.9% 50 ML ONE (23:59)
[2024-06-12 00:05] LABS: ALT/SGPT 32 U/L (13-56); AST/SGOT 16 U/L (15-37); Albumin 3.7 g/dL (3.4-5.0); Albumin/Globulin Ratio 1.1 (1.1-1.8); Alkaline Phosphatase 89 U/L (45-117); Anion Gap 8.7 mEq/L (5.0-15.0); BUN Blood Urea Nitrogen 18 mg/dL (7-18); Bicarbonate 27 mEq/L (21-32); Bilirubin Total 0.3 mg/dL (0.2-1.0); Globulin 3.5 g/dL (2.3-3.5); Glomerular Filtration Rate 122 ml/min (=/>90); Glucose Level 92 mg/dL (74-106); Potassium 3.7 mEq/L (3.5-5.1); Protein, Total 7.2 g/dL (6.4-8.2); Sodium Level 138 mEq/L (136-145); Troponin High Sensitivity 5.6 pg/mL (<58.9)
[2024-06-12 00:06] LABS: Bilirubin Direct < 0.2 mg/dL (0-0.2); Bilirubin Indirect, Calculated 0.1 mg/dL (0.2-0.8)
[2024-06-12 00:59] LABS: Absolute Eosinophils 0.1 K/uL (0-0.5); Absolute Lymphocytes (CBC) 1.8 K/uL (0.7-4.9); Absolute Monocytes 0.4 K/uL (0.1-1.3); Absolute Neutrophil 4.5 K/uL (1.8-8.0); Basophils % 0.5 % (0-1.3); Eosinophils % 1.7 % (0-4.4); Hematocrit 35.5 % (36.0-45.0); Hemoglobin 12.2 g/dL (12.0-15.0); Lymphocytes % 26.9 % (15.3-44.8); MCH 28.9 pg (27.0-35.0); MCHC 34.5 g/dL (32.0-36.0); MCV 83.8 fL (80-100); MPV 9.6 fL (7.6-11.3); Monocytes % 5.4 % (3.3-12.3); Neutrophils % 65.5 % (41.7-73.7); Nucleated Red Blood Cells % 0.1 % (0-0); Platelets 176 thou/uL (152-406); RBC Red Blood Cell Count 4.23 M/uL (3.86-4.86)
--- NOTE | 2024-06-12 01:04 | ER ---
[facility] Name: Temitope Logan Age: 29 yrs Sex: Female : 1995 Arrival Date: 06/11/2024 Time: 21:51 Bed 10 Private MD: Diagnosis: Chest pain, unspecified;Headache Presentation: 06/11 22:03 Chief complaint: Patient states: intermittent left upper chest pain that radiates to me1 left upper back, 5/10 now, 8/10 at the worst, "sharp" that started last . Also reports headache 8/10 for a couple of days. Coronavirus screen: Vaccine status: Patient reports receiving the 2nd dose of the covid vaccine. Ebola Screen: No symptoms or risks identified at this time. Initial Sepsis Screen: Does the patient meet any 2 criteria? No. Patient's initial sepsis screen is negative. Does the patient have a suspected source of infection? No. Patient's initial sepsis screen is negative. Risk Assessment: Do you want to hurt yourself or someone else? Patient reports no desire to harm self or others. Onset of symptoms was June 06, 2024. 22:03 [place] [facility] [place] Acuity: OSMEL 3 me1 Triage Assessment: 06/12 01:43 General: Appears in no apparent distress. Behavior is calm, cooperative, appropriate vc1 for age. Pain: Complains of pain in headache. EENT: No deficits noted. No signs and/or symptoms were reported regarding the EENT system. Neuro: Level of Consciousness is awake, alert, obeys commands, Oriented to person, place, time, situation, Appropriate for age. Cardiovascular: Reports chest pain, Capillary refill < 3 seconds Patient's skin is warm and dry. Respiratory: Airway is patent Respiratory effort is even, unlabored, Respiratory pattern is regular, symmetrical, Breath sounds are clear bilaterally. GI: No deficits noted. No signs and/or symptoms were reported involving the gastrointestinal system. : No deficits noted. No signs and/or symptoms were reported regarding the genitourinary system. Derm: Skin is intact, is healthy with good turgor, Skin is dry, Skin is normal, Skin temperature is warm. Musculoskeletal: Circulation, motion, and sensation intact. Range of motion: intact in all extremities. 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 - Infectious Disease History:: Denies. - Social history:: Smoking status: Patient denies any tobacco usage or history of. Screenin:00 [facility] ED Fall Risk Assessment (Adult) History of falling in the last 3 months, vc1 including since admission No falls in past 3 months (0 pts) Confusion or Disorientation No (0 pts) Intoxicated or Sedated No (0 pts) Impaired Gait No (0 pts) Mobility Assist Device Used No (0 pt) Altered Elimination No (0 pt) Score/Fall Risk Level 0 - 2 = Low Risk Oriented to surroundings, Maintained a safe environment, Educated pt \\T\\ family on fall prevention, incl call for assistance when getting out of bed, Hourly rounding (assess needs \\T\\ fall precautionary measures) done. Abuse screen: Denies threats or abuse. Nutritional screening: No deficits noted. Tuberculosis screening: No symptoms or risk factors identified. Assessment: 06/12 01:45 Reassessment: Patient appears in no apparent distress at this time. Patient and/or vc1 family updated on plan of care and expected duration. Pain level reassessed. Patient is alert, oriented x 3, equal unlabored respirations, skin warm/dry/pink. Patient states feeling better. Patient states symptoms have improved. Vital Signs: 06/11 22:03 BP 129 / 85; Pulse 84; Resp 16; Temp 98.5; Pulse Ox 98% ; Weight 79.83 kg; Height 5 ft. me1 3 in. ; Pain 8/10; 06/12 01:45 BP 124 / 84; Pulse 80; Resp 16; Temp 97.9; Pulse Ox 99% ; vc1 06/11 22:03 Body Mass Index 31.18 (79.83 kg, 160.02 cm) [facility] [place]:03 Pain Scale: [place] [facility] [place] Course: 06/11 21:54 Patient arrived in ED. jj6 22:05 Triage completed. me1 22:05 Arm band placed on Patient placed in waiting room. me1 22:06 [facility] sb4 22:06 Gareth Rodriguez MD is Attending Physician. sb4 22:23 XRAY Chest (1 view) In Process Unspecified. EDMS 22:42 Head Brain Wo Cont CT In Process Unspecified. EDMS 23:00 Patient has correct armband on for positive identification. Placed in gown. Bed in low vc1 position. Call light in reach. school lunch monitor on. Pulse ox on. NIBP on. 23:00 Provided Education on: plan of care. vc1 23:15 Inserted saline lock: 20 gauge in right antecubital area, using aseptic technique. af3 Blood collected. Flushed with 10 mL NS. 06/12 01:44 No provider procedures requiring assistance completed. IV discontinued, intact, vc1 bleeding controlled, No redness/swelling at site. Pressure dressing applied. Patient maintains SpO2 saturation greater than 95% on room air. Administered Medications: 00:07 Drug: NS 0.9% IV 1000 ml IV at 1 bolus Per protocol; to be given as a bolus over 60 vc1 minutes Route: IV; Rate: 1 bolus; Site: left antecubital; 01:46 Follow up: IV Status: Completed infusion; IV Intake: 1000ml vc1 00:07 Drug: diphenhydrAMINE IVP 25 mg IVP once Route: IVP; Site: left antecubital; vc1 01:46 Follow up: Response: No adverse reaction vc1 00:07 Drug: metoCLOPramide IVP 10 mg IVP once; over 1 to 2 minutes Route: IVP; Site: left vc1 antecubital; 01:47 Follow up: Response: No adverse reaction; Marked relief of symptoms vc1 Medication: 01:43 VIS not applicable for this client. vc1 Intake: 01:46 IV: 1000ml; Total: 1000ml. vc1 Outcome: 01:03 Discharge ordered by . sb4 01:45 Discharged to home ambulatory, vc1 01:45 Condition: stable 01:45 Discharge instructions given to patient, Instructed on discharge instructions, follow up and referral plans. Demonstrated understanding of instructions, follow-up care, 01:45 Patient left the ED. vc1 Signatures: Dispatcher [employer] EDMS Marii, Lizzette [id number] Sherley Gonzáles RN RN vc1 Mel Batres, KE DEMPSEY sb4 Yamileth Pereyra RN RN me1 Krista Simmons 3
--- NOTE | 2024-06-12 01:04 | EDPHYS ---
Physician Documentation [facility] Name: Temitope Logan Age: 29 yrs Sex: Female : 1995 Arrival Date: 06/11/2024 Time: 21:51 Bed 10 Private MD: ED Physician Gareth Rodriguez HPI: 06/11 23:41 This 29 yrs old Female presents to ER via Ambulatory with complaints of Chest sb4 Pain, Headache. 23:41 patient reports left upper chest pain x 5 days, states it is intermittent, but believes sb4 it is getting worse. states it feels like a heaviness and it radiates to her left shoulder. additionally endorses a left sided headache. denies any nausea, vomiting, diarrhea, or recent illness. does have a history of depression and anxiety but is otherwise healthy. does not smoke. 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 - Infectious Disease History:: Denies. - Social history:: Smoking status: Patient denies any tobacco usage or history of. ROS: 23:41 Constitutional: Negative for fever, chills, and weight loss, sb4 23:41 Cardiovascular: Positive for chest pain, 23:41 Neuro: Positive for headache, 23:41 All other systems are negative, Exam: 23:41 Constitutional: This is a well developed, well nourished patient who is awake, alert, sb4 and in no acute distress. Head/Face: Normocephalic, atraumatic. Eyes: Extra-ocular motions intact. Periorbital areas with no swelling, redness, or edema. ENT: Mucous membranes moist. Cardiovascular: Regular rate and rhythm with a normal S1 and S2. Respiratory: No increased work of breathing, no retractions or nasal flaring. Abdomen/GI: Soft, non-tender, no distension. Skin: Warm, dry with normal turgor. Normal color with no rashes, no lesions, and no evidence of cellulitis. Vital Signs: 22:03 BP 129 / 85; Pulse 84; Resp 16; Temp 98.5; Pulse Ox 98% ; Weight 79.83 kg; Height 5 ft. me1 3 in. ; Pain 8/10; 06/12 01:45 BP 124 / 84; Pulse 80; Resp 16; Temp 97.9; Pulse Ox 99% ; vc1 06/11 22:03 Body Mass Index 31.18 (79.83 kg, 160.02 cm) me1 06/11 22:03 Pain Scale: Adult me1 MDM: 06/11 22:06 Medical Screening Exam initiated sb4 06/12 01:02 Data reviewed: vital signs, nurses notes, lab test result(s), EKG, radiologic studies, sb4 and as a result, I will discharge patient. Counseling: I had a detailed discussion with the patient and/or guardian regarding the historical points, exam findings, and any diagnostic results supporting the discharge/admit diagnosis, lab results, radiology results, the need for outpatient follow up, for definitive care, to return to the emergency department if symptoms worsen or persist or if there are any questions or concerns that arise at home. 06/11 22:18 Order name: Basic Metabolic Panel; Complete Time: 00:08 4 06/11 22:18 Order name: CBC with Diff; Complete Time: 01:01 sb4 06/11 22:18 Order name: LFT's; Complete Time: 00:08 sb4 06/11 22:18 Order name: Magnesium; Complete Time: 00:08 sb4 06/11 22:18 Order name: Troponin HS; Complete Time: 00:08 sb4 06/11 22:18 Order name: XRAY Chest (1 view); Complete Time: 22:37 sb4 06/11 22:18 Order name: Head Brain Wo Cont CT; Complete Time: 22:53 sb4 06/11 22:18 Order name: Cardiac monitoring; Complete Time: 23:15 sb4 06/11 22:18 Order name: EKG - Nurse/Tech; Complete Time: 23:15 sb4 06/11 22:18 Order name: IV Saline Lock; Complete Time: 23:15 sb4 06/11 22:18 Order name: Labs collected and sent; Complete Time: 23:15 sb4 06/11 22:18 Order name: O2 Per Protocol; Complete Time: 23:15 sb4 06/11 22:18 Order name: O2 Sat Monitoring; Complete Time: 23:15 sb4 06/12 00:32 Order name: Misc. Order: recollect CBC; Complete Time: 00:39 sb4 EC/29 23:13 Rate is 68 beats/min. Rhythm is regular, Normal Sinus Rhythm. DE interval is normal at sb4 160 msec. QRS interval is normal at 92 msec. QT interval is normal at 394 msec. No Q waves. T waves are Normal. No ST changes noted. Clinical impression: No evidence of ischemia. Interpreted by me. Reviewed by me. Administered Medications: 06/12 00:07 Drug: NS 0.9% IV 1000 ml IV at 1 bolus Per protocol; to be given as a bolus over 60 vc1 minutes Route: IV; Rate: 1 bolus; Site: left antecubital; 01:46 Follow up: IV Status: Completed infusion; IV Intake: 1000ml vc1 00:07 Drug: diphenhydrAMINE IVP 25 mg IVP once Route: IVP; Site: left antecubital; vc1 01:46 Follow up: Response: No adverse reaction vc1 00:07 Drug: metoCLOPramide IVP 10 mg IVP once; over 1 to 2 minutes Route: IVP; Site: left vc1 antecubital; 01:47 Follow up: Response: No adverse reaction; Marked relief of symptoms vc1 Disposition: 01:39 Co-signature as Attending Physician, Gareth Rodriguez MD I agree with the assessment sp4 and plan of care. I reviewed the patient's care provided by the Advanced Practice Provider and agree with the diagnosis and treatment plan. Disposition Summary: 06/12/24 01:03 Discharge Ordered Notes: Location: Home sb4 Problem: new sb4 Symptoms: have improved sb4 Condition: Stable sb4 Diagnosis - Chest pain, unspecified sb4 - Headache sb4 Followup: sb4 - With: Private Physician - When: 1 week - Reason: Recheck today's complaints, Re-evaluation by your physician Discharge Instructions: - Discharge Summary Sheet sb4 - General Headache Without Cause sb4 - Nonspecific Chest Pain, Adult, Pabd-[place]yt sb4 Forms: - Patient Portal Instructions sb4 - Leadership Thank You Letter sb4 Signatures: Dispatcher [employer] EDMS Sherley Gonzáles RN RN vc1 Mel Batres PA-C PAJuanC sb4 Gareth Rodriguez MD MD sp4 Yamileth Pereyra, RN RN me1 Corrections: (The following items were deleted from the chart) 06/11 22:18 22:18 BASIC METABOLIC PANEL+C.LAB.BRZ ordered. EDMS EDMS 22:18 22:18 CBC+H.LAB.BRZ ordered. EDMS EDMS 22:18 22:18 HEPATIC FUNCTION+C.LAB.BRZ ordered. EDMS EDMS 22:18 22:18 MAGNESIUM+C.LAB.BRZ ordered. EDMS EDMS 22:18 22:18 Troponin High Sensitivity+C.LAB.BRZ ordered. EDMS EDMS 22:18 22:18 Chest Single View+RAD.RAD.BRZ ordered. EDMS EDMS 22:18 22:18 Head Brain Wo Cont+CT.RAD.BRZ ordered. EDMS EDMS
[2024-06-12 09:58] VITALS: BP 124/84; TEMP 97.9; O2SAT 99
--- NOTE | 2024-06-13 11:57 | EKG ---
Test Date: 2024-06-11 Test Time: 23:07:16 Manager Rn: AF MEASUREMENT RESULTS: Intervals: Rate: 68 ND: 160 QRSD: 92 QT: 394 QTc: 418 Rose: P: 51 ND: 160 QRS: 45 T: 41 INTERPRETIVE STATEMENTS: Normal sinus rhythm with sinus arrhythmia Normal ECG No previous ECG available for comparison Electronically Signed On 06-13-24 11:53:54 CDT by Bo Sánchez
== END 2024-06-12 01:45 | disposition home or self-care (01) ==
LOC: ER 21:51
DX: R07.9 Chest pain, unspecified (principal); R51.9 Headache, unspecified; F41.9 Anxiety disorder, unspecified
CPT/HCPCS: 36415; 70450; 71045; 80048; 80076; 83735; 84484; 85025; 93005; J1200; J2765; J7030